=== PATIENT | male | born 1945 | race Caucasian/White ===

== ENCOUNTER 2017-02-03 16:11 | Outpatient (RCR) | payer MEDICARE, OTHER, SELFPAY | END 2017-02-13 | LOC: PULREHAB 16:11 | PROVIDERS: Visit Provider Internal Medicine Adolescent Medicine | DX: J44.9 Chronic obstructive pulmonary disease, unspecified (principal); A31.0 Pulmonary mycobacterial infection | CPT/HCPCS: G0424 ==

== ENCOUNTER → 2017-02-03 | Outpatient (CLI) | payer MEDICARE, OTHER, SELFPAY | PROVIDERS: Visit Provider Thoracic Surgery (Cardiothoracic Vascular Surgery) | DX: I73.9 Peripheral vascular disease, unspecified (principal) | CPT/HCPCS: 36415; 82565; 84520 ==

== ENCOUNTER → 2017-02-05 | Outpatient (CLI) | payer MEDICARE, OTHER, SELFPAY | PROVIDERS: Visit Provider Thoracic Surgery (Cardiothoracic Vascular Surgery) | DX: I70.213 Atherosclerosis of native arteries of extremities with intermittent claudication, bilateral legs (principal) | CPT/HCPCS: 75635; Q9967 ==

== ENCOUNTER → 2017-02-18 14:07 | Outpatient (CLI) | payer MEDICARE, OTHER, SELFPAY ==
--- NOTE | 2017-02-18 14:13 | CT_ITS ---
CT chest wo con HISTORY: Shortness of breath ITS.REASON: SOB ORDERING PHYSICIAN: Edwin Noble PATIENT AGE: 71 years TECHNIQUE: Helical acquisition obtained without contrast. Axial, sagittal, and coronal reformatted images are generated and reviewed. COMPARISON: 09/29/2016 FINDINGS: Scattered atheromatous calcification noted involving the aorta and coronary arteries. Normal heart size. No obvious pericardial effusion. No mediastinal or hilar mass or adenopathy. Centrilobular emphysema with small biapical bulla. Hyperinflation with attenuation of the peripheral pulmonary vessels and bronchial thickening consistent with obstructive chronic bronchitis. There are a few scattered areas of parenchymal fibrosis. Mild atelectatic or fibrotic changes have developed in the right lung base posteriorly and medially. No lobar consolidation or collapse there is a stable 7 x 3 mm nodule within the lingula. Stable 3 mm nodular opacity left lower lobe. Calcified granuloma left lower lobe. No central obstructing lesion evident no evidence of aortic aneurysm. No acute bony anomalies. IMPRESSION: 1. Centrilobular emphysema/COPD with a few scattered fibrotic areas. 2. Stable lingular and left lower lobe nodular opacities 3. No acute finding. 4. Coronary artery disease
== END ==
PROVIDERS: Visit Provider Internal Medicine Critical Care Medicine
DX: R06.02 Shortness of breath (principal)
CPT/HCPCS: 71250

== ENCOUNTER 2017-02-19 14:30 | Outpatient (RCR) | payer MEDICARE, OTHER, SELFPAY | END 2017-02-19 23:59 | LOC: PT 14:30 | PROVIDERS: Visit Provider Internal Medicine Adolescent Medicine | DX: J44.9 Chronic obstructive pulmonary disease, unspecified (principal) ==

== ENCOUNTER 2017-03-17 16:45 | Emergency (ER) | payer MEDICARE, OTHER, SELFPAY ==
[2017-03-17 16:46] VITALS: BP 144/113; PULSE 103; RESP 20; TEMP 37.3; O2SAT 96; BMI 20.9
--- NOTE | 2017-03-17 17:06 | XR_ITS ---
XR hip RT 2-3V w/pelvis HISTORY: Pain following injury ITS.REASON: FALL 4 DAYS AGO ORDERING PHYSICIAN: Med Gamble MD PATIENT AGE: 71 years COMPARISON: None FINDINGS: No fracture or dislocation is evident. No significant degenerative change. No lytic or blastic change. Unremarkable soft tissues IMPRESSION: Negative hip
--- NOTE | 2017-03-17 17:50 | HMH.EDGENADL ---
ED Disposition Clinical Impression: Sacroiliac joint dysfunction of right side Disposition: Home, Self-Care Condition on Discharge: Fair Additional Instructions: Patient requested a copy of his x-ray he will take at his chiropractic friend. Referrals: Lei Corona MD [Primary Care Provider] - - Critical Care Critical Care Time: No Attestation: On 03/17/17, the high probability of a clinically significant, sudden or life threatening deterioration of the following system(s) required my full and direct attention, intervention and personal management. The time I documented below is in addition to time spent performing reported procedures but includes the following listed in this critical care notation. Medical Decision Making - Medical Records Medical records reviewed: Yes: I reviewed the patient's medical records. Vital Signs: 03/17/17 16:46 Temperature 99.1 F Temperature Source Oral Pulse Rate [Left Radial] 103 H Respiratory Rate 20 Blood Pressure [Left Arm] 144/113 Blood Pressure Mean [Left Arm] 123 Blood Pressure Source [Left Arm] Automatic Cuff Blood Pressure Position [Left Arm] Sitting 02 Sat by Pulse Oximetry 96 Oxygen Delivery Method Room Air Orders (Tests/Meds): ORDERS Category Date Time Status Hip XR right minimum 2 views [XR hip RT 2-3V w/pelvis] Exams 03/17/17 17:06 Taken Stat - Radiology Data #1 Image(s): Pelvis, Hip Image Reviewed: Yes I reviewed the patient's radiology image Preliminary Findings: Normal/NAD - Robbin Inquiry Pt receiving controlled substance: No Robbin was queried for this patient: No Medical Decision Making Narrative: I discussed with the patient his physical findings on the radiologic findings. At the present time a recommend symptomatic treatment. If there is no improvement he may consider chiropractic treatment. General Adult HPI - General Chief complaint: PAIN Stated complaint: AO fell 4-5 days ago, right hip pain Mode of Arrival: Ambulatory Limitations: No Limitations Description of Symptoms (Recalled from ER Triage Doc. by RN): PAIN IN R HIP , DUE TO A FALL 4 DAYS AGO . 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 a week ago, He was visiting a friend when the dog when the dog kurt him and he fell landed on his right hip. Has been hurting since then. He had a history of lumbar surgeries and spinal cord stimulator. Onset (ago): day(s) (7 days ago.) Radiation: non-radiation Relieving factors: none Exacerbating factors: movement Associated symptoms: denies other symptoms Treatments prior to arrival: none - Related Data Allergies Allergy/AdvReac Type Severity Reaction Status Date / Time No Known Drug Allergies Allergy Unknown Verified 03/17/17 17:06 [NKDA] [facility] History I have reviewed the patient's past medical history: Yes Medical History: Denies:: Diabetes Mellitus Type 1 - *Social History Educational Level: Completed High School Alcohol Intake: former - Psychiatric History Expresses thoughts of harming self/others: None Suicide Plan Description: No Plan ROS Obtained: Yes All systems reviewed & no additional complaints Physical Exam - General General appearance: alert, in no apparent distress - Head Head exam: atraumatic, normocephalic, normal inspection - Eye Eye exam: Present: normal appearance, PERRL, EOMI - ENT ENT exam: Present: normal exam, normal oropharynx, mucous membranes moist, TM's normal bilaterally, normal external ear exam - Neck Neck exam: Present: normal inspection, full ROM, trachea midline. Absent: meningismus, lymphadenopathy - Chest Chest inspection: Present: normal inspection, symmetric chest wall rise. Absent: tenderness - Respiratory Respiratory exam: Present: normal lung sounds bilaterally. Absent: respiratory distress - Cardiovascular Cardiovascular exam: Present: regular rate
--- NOTE | 2017-03-17 17:56 | ED_ITS ---
ED Disposition Clinical Impression: Sacroiliac joint dysfunction of right side Disposition: Home, Self-Care Condition on Discharge: Fair Additional Instructions: Patient requested a copy of his x-ray he will take at his chiropractic friend. Referrals: Lei Corona MD [Primary Care Provider] - - Critical Care Critical Care Time: No Attestation: On 03/17/17, the high probability of a clinically significant, sudden or life threatening deterioration of the following system(s) required my full and direct attention, intervention and personal management. The time I documented below is in addition to time spent performing reported procedures but includes the following listed in this critical care notation. Medical Decision Making - Medical Records Medical records reviewed: Yes: I reviewed the patient's medical records. Vital Signs: 03/17/17 16:46 Temperature 99.1 F Temperature Source Oral Pulse Rate [Left Radial] 103 H Respiratory Rate 20 Blood Pressure [Left Arm] 144/113 Blood Pressure Mean [Left Arm] 123 Blood Pressure Source [Left Arm] Automatic Cuff Blood Pressure Position [Left Arm] Sitting 02 Sat by Pulse Oximetry 96 Oxygen Delivery Method Room Air Orders (Tests/Meds): ORDERS Category Date Time Status Hip XR right minimum 2 views [XR hip RT 2-3V w/pelvis] Exams 03/17/17 17:06 Taken Stat - Radiology Data #1 Image(s): Pelvis, Hip Image Reviewed: Yes I reviewed the patient's radiology image Preliminary Findings: Normal/NAD - Robbin Inquiry Pt receiving controlled substance: No Robbin was queried for this patient: No Medical Decision Making Narrative: I discussed with the patient his physical findings on the radiologic findings. At the present time a recommend symptomatic treatment. If there is no improvement he may consider chiropractic treatment. General Adult HPI - General Chief complaint: PAIN Stated complaint: AO fell 4-5 days ago, right hip pain Mode of Arrival: Ambulatory Limitations: No Limitations Description of Symptoms (Recalled from ER Triage Doc. by RN): PAIN IN R HIP , DUE TO A FALL 4 DAYS AGO . 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 a week ago, He was visiting a friend when the dog when the dog kurt him and he fell landed on his right hip. Has been hurting since then. He had a history of lumbar surgeries and spinal cord stimulator. Onset (ago): day(s) (7 days ago.) Radiation: non-radiation Relieving factors: none Exacerbating factors: movement Associated symptoms: denies other symptoms Treatments prior to arrival: none - Related Data Allergies Allergy/AdvReac Type Severity Reaction Status Date / Time No Known Drug Allergies Allergy Unknown Verified 03/17/17 17:06 [NKDA] [facility] History I have reviewed the patient's past medical history: Yes Medical History: Denies:: Diabetes Mellitus Type 1 - *Social History Educational Level: Completed High School Alcohol Intake: former - Psychiatric History Expresses thoughts of harming self/others: None Suicide Plan Description: No Plan ROS Obtained: Yes All systems reviewed & no additional complaints Physical Exam - General General appearance: alert, in no apparent distress
== END 2017-03-17 18:05 | disposition home or self-care (01) ==
PROVIDERS: Emergency Provider Emergency Medicine; PCP Internal Medicine Adolescent Medicine
DX: M25.851 Other specified joint disorders, right hip (principal)
CPT/HCPCS: 73502; 99282

== ENCOUNTER → 2017-04-20 15:01 | Outpatient (CLI) | payer MEDICARE, OTHER, SELFPAY ==
--- NOTE | 2017-04-20 15:10 | XR_ITS ---
XR DEXA axial skeleton HISTORY: ITS.REASON: CURRENT STERIOD USE ORDERING PHYSICIAN: Lei Corona MD PATIENT AGE: 71 years COMPARISON: None FINDINGS: The BMD measured at the left femoral neck is 0.764 g/cm squared with a T score of -2.4 . This is considered low in males with high fracture risk. The L1 L4 density has a T score of 1.0 which is normal. IMPRESSION: Low bone density for male with high fracture risk. Recommend treatment and follow-up exam in April 2018
[2017-04-20 17:21] LABS: Alanine Aminotransferase 37 U/L (12-78); Albumin Level 4.2 gm/dL (3.4-5.0); Albumin/Globulin Ratio 1.2 (1.1-1.8); Alkaline Phosphatase 100 U/L (46-116); Anion Gap 10.6 mEq/L (5-15); Aspartate Amino Transferase 23 U/L (15-37); Bilirubin,Total 0.3 mg/dL (0.2-1.0); Blood Urea Nitrogen 12 mg/dL (7-18); Calcium 9.5 mg/dL (8.5-10.1); Carbon Dioxide 34 mmol/L (21.0-32.0); Chloride 102 mmol/L (98-107); Chol/HDL Ratio 3.2 (1-3.5); Cholesterol 250 mg/dL (140-200); Creatinine,Serum 1.02 mg/dL (0.70-1.30); Estimated Glomerular Filt Rate 72 ml/min (>60); GFR (African American) 87 ML/MIN (>60); Globulin 3.4 gm/dl (1.3-3.2); Glucose 113 mg/dL (74-106); HDL Cholesterol 79 mg/dL (27-67); LDL Cholesterol 157 mg/dL (0-130); Potassium 4.6 mmoL/L (3.5-5.1); Sodium 142 mmol/L (136-145); Total Protein,Serum 7.6 gm/dL (6.4-8.2); Triglycerides 71 mg/dL (30-200); VLDL Cholesterol 14 mg/dL (0-40)
== END ==
PROVIDERS: PCP Internal Medicine Adolescent Medicine; Visit Provider Internal Medicine Adolescent Medicine
DX: Z79.52 Long term (current) use of systemic steroids (principal); E78.5 Hyperlipidemia, unspecified; Z13.820 Encounter for screening for osteoporosis
CPT/HCPCS: 36415; 77080; 80053; 80061

== ENCOUNTER 2017-04-25 15:21 | Emergency (ER) | payer MEDICARE, OTHER, SELFPAY ==
[2017-04-25 15:26] VITALS: BP 132/74; PULSE 75; RESP 18; TEMP 36.8; O2SAT 98; BMI 18.6
--- NOTE | 2017-04-25 15:40 | HMH.EDBACK ---
ED Disposition Clinical Impression: Lumbar canal stenosis, PVD (peripheral vascular disease) Disposition: Home, Self-Care Condition on Discharge: Fair Additional Instructions: 1- continue neurivascular check and return for any change as we discussed . 2- use mobic 7.5 mg po bid. 3- continue no smoking 4- follow up with [facility] in [place] and Dr Allen your vascular surgeon. Prescriptions: Meloxicam [Mobic 7.5mg Tab] 7.5 mg PO BID #30 tab Referrals: Lei Corona MD [Primary Care Provider] - - Critical Care Critical Care Time: No Attestation: On 04/25/17, the high probability of a clinically significant, sudden or life threatening deterioration of the following system(s) required my full and direct attention, intervention and personal management. The time I documented below is in addition to time spent performing reported procedures but includes the following listed in this critical care notation. Medical Decision Making - Robbin Inquiry Pt receiving controlled substance: No Robbin was queried for this patient: No Medical Decision Making Narrative: I had a full discussion with the patient in the presence of his nurse, pain is a started a week ago since he tried that stationary bike at his chiropractic friend, is aware that he has a strong bilateral pulses, admitted for having a prior diagnosis of spinal canal stenosis. We discussed the need for rest use of anti-inflammatory and continue pulsation check. Patient is to return for any change in his pulse exam. Back Pain HPI - General Stated Complaint: leg pain - History of Present Illness HPI Narrative: 8 years old white male ex-smoker with history of lumbar canal stenosis and femorofemoral bypass at [facility]. He has been helping his chiropractic friend a week ago when he got on a bike and since then his back has been hurting and radiating to the posterior aspect of both thighs. He is unable to keep his back straight he has to walk bend forward. Percocet used to help and is not helping anymore. Denies cold feet, change of color, or pedal pain, him and his are able to palpate the pulses in both feet. Complaint: back pain Onset (ago): day(s) (1 week.) Duration: constant Similar Symptoms Previously: Yes Location: lumbar spine Severity: moderate Quality: sharp Radiation: none Relieving factors: other (Bending forward makes it easier to walk. ) Exacerbating factors: none, movement (Standing up straight and activity since he used the bike. ) Context: turning/twisting, bending Associated symptoms: denies other symptoms Pertinent Issues R/T Back Pain: Other (Prior vascular surgery.) - Related Data Previous Rx's Medication Instructions Recorded Meloxicam [Mobic 7.5mg Tab] 7.5 mg PO BID #30 tab 04/25/17 Allergies Allergy/AdvReac Type Severity Reaction Status Date / Time No Known Drug Allergies Allergy Unknown Verified 03/17/17 17:06 [NKDA] [facility] History I have reviewed the patient's past medical history: Yes Medical History: Denies:: Diabetes Mellitus Type 1 - Social History Alcohol Intake: former ROS Obtained: Yes All systems reviewed & no additional complaints Physical Exam - General General appearance: alert, in no apparent distress - Head Head exam: atraumatic, normocephalic, normal inspection - Eye Eye exam: Present: normal appearance, PERRL, EOMI - ENT ENT exam: Present: normal exam, normal oropharynx, mucous membranes moist, TM's normal bilaterally, normal external ear exam - Neck Neck exam: Present: normal inspection, full ROM, trachea midline. Absent: meningismus, lymphadenopathy - Chest Chest inspection: Present: normal inspection, symmetric chest wall rise. Absent: tenderness - Respiratory Respiratory exam: Present: normal lung sounds bilaterally. Absent: respiratory distress - Cardiovascular Cardiovascular exam: Present: regular rate, normal rhythm. Absent: JVD - Abdomina
--- NOTE | 2017-04-25 15:43 | ED_ITS ---
ED Disposition Clinical Impression: Lumbar canal stenosis, PVD (peripheral vascular disease) Disposition: Home, Self-Care Condition on Discharge: Fair Additional Instructions: 1- continue neurivascular check and return for any change as we discussed . 2- use mobic 7.5 mg po bid. 3- continue no smoking 4- follow up with [facility] in [place] and Dr Allen your vascular surgeon. Prescriptions: Meloxicam [Mobic 7.5mg Tab] 7.5 mg PO BID #30 tab Referrals: Lei Corona MD [Primary Care Provider] - - Critical Care Critical Care Time: No Attestation: On 04/25/17, the high probability of a clinically significant, sudden or life threatening deterioration of the following system(s) required my full and direct attention, intervention and personal management. The time I documented below is in addition to time spent performing reported procedures but includes the following listed in this critical care notation. Medical Decision Making - Robbin Inquiry Pt receiving controlled substance: No Robbin was queried for this patient: No Medical Decision Making Narrative: I had a full discussion with the patient in the presence of his nurse, pain is a started a week ago since he tried that stationary bike at his chiropractic friend, is aware that he has a strong bilateral pulses, admitted for having a prior diagnosis of spinal canal stenosis. We discussed the need for rest use of anti-inflammatory and continue pulsation check. Patient is to return for any change in his pulse exam. Back Pain HPI - General Stated Complaint: leg pain - History of Present Illness HPI Narrative: 8 years old white male ex-smoker with history of lumbar canal stenosis and femorofemoral bypass at [facility]. He has been helping his chiropractic friend a week ago when he got on a bike and since then his back has been hurting and radiating to the posterior aspect of both thighs. He is unable to keep his back straight he has to walk bend forward. Percocet used to help and is not helping anymore. Denies cold feet, change of color, or pedal pain, him and his are able to palpate the pulses in both feet. Complaint: back pain Onset (ago): day(s) (1 week.) Duration: constant Similar Symptoms Previously: Yes Location: lumbar spine Severity: moderate Quality: sharp Radiation: none Relieving factors: other (Bending forward makes it easier to walk. ) Exacerbating factors: none, movement (Standing up straight and activity since he used the bike. ) Context: turning/twisting, bending Associated symptoms: denies other symptoms Pertinent Issues R/T Back Pain: Other (Prior vascular surgery.) - Related Data Previous Rx's Medication Instructions Recorded Meloxicam [Mobic 7.5mg Tab] 7.5 mg PO BID #30 tab 04/25/17 Allergies Allergy/AdvReac Type Severity Reaction Status Date / Time No Known Drug Allergies Allergy Unknown Verified 03/17/17 17:06 [NKDA] [facility] History I have reviewed the patient's past medical history: Yes Medical History: Denies:: Diabetes Mellitus Type 1 - Social History Alcohol Intake: former ROS Obtained: Yes All systems reviewed & no additional complaints Physical Exam - General General appearance: alert, in no apparent distress - Head Head exam: atraumatic, normocephalic, normal inspection - Eye Eye exam: Present: normal appearance, PERRL, EOMI - ENT ENT exam: Present: normal exam, no
--- NOTE | 2017-04-25 15:44 | PC.NURSE ---
pt with positive pulses ble, dorsal, popliteal,femoral
[2017-04-25 15:59] VITALS: BP 132/75; PULSE 65; RESP 18; TEMP 36.7; O2SAT 99
== END 2017-04-25 15:58 | disposition home or self-care (01) ==
PROVIDERS: Emergency Provider Emergency Medicine; PCP Internal Medicine Adolescent Medicine
DX: M53.3 Sacrococcygeal disorders, not elsewhere classified (principal); M48.061 Spinal stenosis, lumbar region without neurogenic claudication; I73.9 Peripheral vascular disease, unspecified
CPT/HCPCS: 99281

== ENCOUNTER → 2017-05-13 13:05 | Outpatient (CLI) | payer MEDICARE, OTHER, SELFPAY ==
[2017-05-13 14:05] LABS: Blood Urea Nitrogen 22 mg/dL (7-18); Creatinine,Serum 0.99 mg/dL (0.70-1.30); Estimated Glomerular Filt Rate 75 ml/min (>60); GFR (African American) 90 ML/MIN (>60)
--- NOTE | 2017-05-13 15:00 | CT_ITS ---
CT thoracic spine w con INDICATION: ITS.REASON: SPINAL STENOSIS,LOW BACK PAIN,THORACIC PAIN ORDERING PHYSICIAN: Hernesto Mccormick PATIENT AGE: 71 years COMPARISON: Chest CT of 02/18/2017 TECHNIQUE: Axial images are obtained with 75 mL's of Isovue-370 contrast. Sagittal and coronal reformatted images are reviewed as well. All CT scans at the facility use one or more dose reduction, viz: automated exposure control; ma/kV adjustment per patient size (including targeted exams where dose is matched to indication; i.e. head); or iterative reconstruction technique. FINDINGS: There is an epidural catheter present which enters the spinal canal posteriorly at the L1 level. There is good alignment. No fracture or dislocation is evident. No enhancing lesions minimal endplate osteophytes are present. The epidural catheter ends at the T7-T8 level. There is a small Schmorl's node along the superior endplate of T12. No enhancing lesions are evident. No obstructive process. No evidence of spondylodiscitis or very spinal abscess IMPRESSION: Mild thoracic spondylosis. No acute fracture or dislocation. Epidural stimulator device is in place. No enhancing abnormalities. No mass or destructive process. No spinal stenosis in the thoracic or lumbar spine.
--- NOTE | 2017-05-13 15:00 | CT_ITS ---
CT lumbar spine w con INDICATION: Low back pain, ITS.REASON: SPINAL STENOSIS,LOW BACK PAIN,THORACIC PAIN ORDERING PHYSICIAN: Hernesto Mccormick PATIENT AGE: 71 years COMPARISON: CT scan of the chest of 02/18/2017 TECHNIQUE: Axial images are obtained without and with contrast. Sagittal and coronal reformatted images are reviewed as well. All CT scans at the facility use one or more dose reduction, viz: automated exposure control; ma/kV adjustment per patient size (including targeted exams where dose is matched to indication; i.e. head); or iterative reconstruction technique. FINDINGS: There is normal alignment. There is a transitional segment at the lumbosacral junction which will be labeled as S1. Certainly if any intervention is contemplated then this should be taken into consideration. L1-L2: There is mild wedge compression changes involving the central and superior aspect of the L2 vertebral body with loss of height anteriorly of 25% with very minimal retropulsion of the posterior superior aspect of L2 with straightening of the lumbar lordosis.. This compression chains has developed since previous chest CT of 02/18/2017. L2-L3: There is suggestion of a broad-based central and right paracentral disc protrusion with mild facet and ligamentum flavum hypertrophy and mild lateral recess narrowing L3-L4: Unremarkable. L4-5: Mild concentric bulging disc along with facet and ligamentum flavum hypertrophy with narrowing of the canal along with bilateral lateral recess and foraminal narrowing L5-S1: Severe degenerative disc disease with endplate osteophytes and bulging disc facet ligamentum flavum hypertrophy with severe bilateral foraminal narrowing. Gas density is present in the right lateral recess and foraminal area on the right at L5-S1 likely extruded from the local disc. Gas could be present within the disc protrusion/herniation as well which cannot be further evaluated on the CT scan. Subcortical cystic changes are present. There is severe bilateral foraminal narrowing. Right-sided laminectomy defect is present at S1. No enhancing lesions are evident. No evidence of abscess or discitis. There is a 1.5 cm cyst involving the right kidney posteriorly. IMPRESSION: 1. Acute or subacute compression fracture of L2 with minimal retropulsion of the posterior superior aspect. 2. Broad-based central right paracentral disc protrusion at L2-L3 3. Severe degenerative disc disease at L5-S1 with endplate osteophytes and bulging disc facet ligamentum flavum hypertrophy with severe bilateral foraminal narrowing. Gas density is present in the right lateral recess and foraminal area on the right at L5-S1 likely extruded from the local disc. Gas could be present within the disc protrusion/herniation as well which cannot be further evaluated on the CT scan. Subcortical cystic changes are present. There is severe bilateral foraminal narrowing. Right-sided laminectomy defect is present at S1.
== END ==
PROVIDERS: PCP Internal Medicine Adolescent Medicine; Visit Provider Pain Medicine Interventional Pain Medicine
DX: M48.061 Spinal stenosis, lumbar region without neurogenic claudication (principal); M54.6 Pain in thoracic spine
CPT/HCPCS: 36415; 72129; 72132; 82565; 84520; Q9967

== ENCOUNTER → 2017-07-22 14:22 | Outpatient (CLI) | payer MEDICARE, OTHER, SELFPAY ==
[2017-07-22 14:36] LABS: Basophils # 0.1 K/mm3 (0-0.2); Basophils % 0.3 % (0.1-2.0); Eosinophils # 0.2 K/mm3 (0.0-0.4); Eosinophils % 1.3 % (0.1-12.0); Hematocrit 52.1 % (42.0-52.0); Hemoglobin 16.3 g/dL (14.1-18.0); Lymphocytes # 1.6 K/mm3 (0.7-4.5); Lymphocytes % 10.5 K/mm3 (10-50); Mean Corpuscular HGB Conc 31.3 g/dL (31.8-35.4); Mean Corpuscular Hemoglobin 31.2 pg (27.0-31.2); Mean Corpuscular Volume 99.7 fl (80-94); Mean Platelet Volume 9.1 fl (7.4-10.4); Monocytes # 0.3 K/mm3 (0.1-1.0); Monocytes % 2.1 % (1.7-9.3); Neutrophils # 12.9 K/mm3 (1.8-7.8); Neutrophils % 85.8 % (37.0-80.0); Platelet Count 209 K/mm3 (142-424); Red Blood Count 5.22 M/mm3 (4.60-6.20); Red Cell Distribution Width 13.2 % (11.5-17.5)
[2017-07-22 14:39] LABS: MANUAL DIFFERENTIAL MANUAL DIFFERENTIAL (MANUAL DIFF)
[2017-07-22 15:09] LABS: Alanine Aminotransferase 38 U/L (12-78); Albumin Level 4.5 gm/dL (3.4-5.0); Albumin/Globulin Ratio 1.5 (1.1-1.8); Alkaline Phosphatase 85 U/L (46-116); Anion Gap 18.3 mEq/L (5-15); Aspartate Amino Transferase 28 U/L (15-37); Blood Urea Nitrogen 15 mg/dL (7-18); Calcium 10.1 mg/dL (8.5-10.1); Carbon Dioxide 27 mmol/L (21.0-32.0); Chloride 102 mmol/L (98-107); Creatinine,Serum 1.18 mg/dL (0.70-1.30); Estimated Glomerular Filt Rate 61 ml/min (>60); GFR (African American) 74 ML/MIN (>60); Globulin 3.1 gm/dl (1.3-3.2); Glucose 105 mg/dL (74-106); Potassium 5.3 mmoL/L (3.5-5.1); Sodium 142 mmol/L (136-145); Total Protein,Serum 7.6 gm/dL (6.4-8.2)
[2017-07-22 15:25] LABS: Eosinophils % 1 % (0-3); Lymphocytes % 16 % (10-50); Monocytes % 1 % (2-9); Neutrophils % 82 % (42-76); Total Cells Counted 100
[2017-07-22 15:26] LABS: Platelet Estimate Normal; RBC Morphology Normal
== END ==
PROVIDERS: Visit Provider Internal Medicine
DX: R10.9 Unspecified abdominal pain (principal)
CPT/HCPCS: 36415; 80053; 85007; 85025

== ENCOUNTER → 2017-12-16 14:47 | Outpatient (CLI) | payer MEDICARE, OTHER, SELFPAY ==
--- NOTE | 2017-12-16 14:51 | XR_ITS ---
XR knee LT 3V HISTORY: ITS.REASON: LT ANTERIOR KNEE PAIN ORDERING PHYSICIAN: Lei Corona MD PATIENT AGE: 72 years COMPARISON: None FINDINGS: No fracture or dislocation. No lytic or blastic change. Normal mineralization. No significant arthritic changes evident. No other significant findings surgical clips are present along the medial aspect of the distal femur IMPRESSION: Negative Knee
== END ==
PROVIDERS: PCP Internal Medicine Adolescent Medicine; Visit Provider Internal Medicine Adolescent Medicine
DX: M25.562 Pain in left knee (principal)
CPT/HCPCS: 73562

== ENCOUNTER → 2018-01-05 14:20 | Outpatient (CLI) | payer MEDICARE, OTHER, SELFPAY ==
--- NOTE | 2018-01-05 14:24 | XR_ITS ---
XR knee LT 3V HISTORY: ITS.REASON: LT KNEE PAIN ORDERING PHYSICIAN: Sushma Caal MD PATIENT AGE: 72 years COMPARISON: 12/16/2017 FINDINGS: No fracture or dislocation. No lytic or blastic change. Surgical clips are present along the distal femur medially and posteriorly. There is slight decrease in the joint space medially which may be seen with mild osteoarthritis. IMPRESSION: 1. No acute finding. 2. Slight decrease in the joint space medially which may be seen with mild osteoarthritis
== END ==
PROVIDERS: PCP Internal Medicine Adolescent Medicine; Visit Provider Orthopaedic Surgery
DX: M25.562 Pain in left knee (principal)
CPT/HCPCS: 73562

== ENCOUNTER → 2018-01-13 14:41 | Outpatient (CLI) | payer MEDICARE, OTHER, SELFPAY ==
[2018-01-13 15:09] LABS: Basophils # 0.1 K/mm3 (0-0.2); Basophils % 0.5 % (0.1-2.0); Eosinophils # 0.2 K/mm3 (0.0-0.4); Hematocrit 45.5 % (42.0-52.0); Hemoglobin 14.4 g/dL (14.1-18.0); Lymphocytes # 1.7 K/mm3 (0.7-4.5); Lymphocytes % 15.6 % (10-50); Mean Corpuscular HGB Conc 31.7 g/dL (31.8-35.4); Mean Corpuscular Hemoglobin 31.3 pg (27.0-31.2); Mean Corpuscular Volume 98.8 fl (80-94); Mean Platelet Volume 7.9 fl (7.4-10.4); Monocytes # 0.5 K/mm3 (0.1-1.0); Monocytes % 4.8 % (1.7-9.3); Neutrophils # 8.2 K/mm3 (1.8-7.8); Neutrophils % 77.1 % (37.0-80.0); Platelet Count 211 K/mm3 (142-424); Red Blood Count 4.61 M/mm3 (4.60-6.20); Red Cell Distribution Width 14.3 % (11.5-17.5); White Blood Count 10.7 K/mm3 (4.8-10.8)
--- NOTE | 2018-01-13 15:09 | XR_ITS ---
XR chest 2V HISTORY: Former smoker, COPD ITS.REASON: EX SMOKER, PRE OP ORDERING PHYSICIAN: Sushma Caal MD PATIENT AGE: 72 years COMPARISON: 09/29/2016 FINDINGS: There is hyperinflation with attenuation of the peripheral pulmonary vessels consistent with COPD with some mild fibrotic changes in the lung bases. No lobar consolidation or collapse. Unremarkable cardiovascular structures. There is straightening of the thoracic kyphosis and there is an epidural catheter device present. IMPRESSION: COPD, no acute finding.
[2018-01-13 15:17] LABS: Prothrombin Time 9.3 seconds (9.4-11.8)
[2018-01-13 16:42] LABS: Alanine Aminotransferase 36 U/L (12-78); Albumin Level 3.7 gm/dL (3.4-5.0); Albumin/Globulin Ratio 1.2 (1.1-1.8); Alkaline Phosphatase 78 U/L (46-116); Anion Gap 13.5 mEq/L (5-15); Aspartate Amino Transferase 23 U/L (15-37); Bilirubin,Total 0.4 mg/dL (0.2-1.0); Blood Urea Nitrogen 19 mg/dL (7-18); Calcium 9.8 mg/dL (8.5-10.1); Carbon Dioxide 31 mmol/L (21.0-32.0); Chloride 101 mmol/L (98-107); Estimated Glomerular Filt Rate 74 ml/min (>60); GFR (African American) 89 ML/MIN (>60); Globulin 3.2 gm/dl (1.3-3.2); Glucose 123 mg/dL (74-106); Potassium 4.5 mmoL/L (3.5-5.1); Sodium 141 mmol/L (136-145); Total Protein,Serum 6.9 gm/dL (6.4-8.2)
== END ==
PROVIDERS: Visit Provider Orthopaedic Surgery
DX: M25.562 Pain in left knee; Z01.812 Encounter for preprocedural laboratory examination; Z01.810 Encounter for preprocedural cardiovascular examination; Z79.52 Long term (current) use of systemic steroids
CPT/HCPCS: 36415; 71046; 80053; 85025; 85610; 93005

== ENCOUNTER → 2018-01-26 14:52 | Outpatient (CLI) | payer MEDICARE, OTHER, SELFPAY ==
--- NOTE | 2018-01-26 | NVE_ITS ---
Venous Exam Indications: 729.5 Pain in limb. IMPRESSIONS 1. There is no evidence of significant Reflux. 2. No evidence of deep or superficial vein thrombosis involving the right lower extremity and left lower extremity History: Bilateral lower extremity pain. Risk factors: Former tobacco use. Labs, prior tests, procedures, and surgery: Left knee arthroscopy. Labs, prior tests, procedures, and surgery: Left knee arthroscopy. Complete lower extremity venous duplex evaluation. Doppler flow study including spectral analysis, color and valerio scale imaging. Location: Vascular laboratory. Patient status: Outpatient. Tables: Venous flow and imaging: + +-------+ + Location Overall Flow properties + +-------+ + Right common femoral Patent Normal phasicity; spontaneous; normal augmentation; compressible + +-------+ + Right saphenofemoral junction Patent Compressible + +-------+ + Right profunda femoral Patent Compressible + +-------+ + Right femoral Patent Normal phasicity; spontaneous; normal augmentation; compressible; no reflux + +-------+ + Right greater saphenous Patent Normal phasicity; spontaneous; normal augmentation; compressible + +-------+ + Right popliteal Patent Normal phasicity; spontaneous; normal augmentation; compressible + +-------+ + Right posterior tibial Patent Compressible + +-------+ + Right peroneal Patent Compressible + +-------+ + Right gastrocnemius Patent Compressible + +-------+ + Right soleal Patent Compressible + +-------+ + Left common femoral Patent Normal phasicity; spontaneous; normal augmentation; compressible + +-------+ + Left saphenofemoral junction Patent Compressible + +-------+ + Left profunda femoral Patent Compressible + +-------+ + Left femoral Patent Normal phasicity; spontaneous; normal augmentation; compressible +
== END ==
PROVIDERS: PCP Internal Medicine Adolescent Medicine; Visit Provider Orthopaedic Surgery
DX: I73.9 Peripheral vascular disease, unspecified (principal); M79.605 Pain in left leg
CPT/HCPCS: 93970

== ENCOUNTER → 2018-01-29 12:54 | Outpatient (CLI) | payer MEDICARE, OTHER, SELFPAY ==
--- NOTE | 2018-01-29 12:56 | AS_ITS ---
Arterial Exam Indications: PVD 433.9. 782.0 Disturbance of skin sensation. 729.5 Pain in limb. 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 440.21 Atherosclerosis of [place] arteries of the extremities with intermittent claudication. IMPRESSIONS 1. Elevated velocity seen left common femoral arterydistal to graft in left iliac artery. 2. Study suggests less than 60% stenosis involving the right common iliac artery Labs, prior tests, procedures, and surgery: Pt states he has had stenting/grafting bilateral LE's.Pt has a scar proximal medial left thigh. Peripheral stent ( right). ? Peripheral stent ( left). ? Left graft. iliac Left graft. ? Labs, prior tests, procedures, and surgery: Pt states he has had stenting/grafting bilateral LE's.Pt has a scar proximal medial left thigh. Peripheral stent ( right). ? Peripheral stent ( left). ? Left graft. iliac Left graft. ? Bilateral lower extremity arterial duplex. Duplex scan and ankle-brachial indices. Location: Vascular laboratory. Patient status: Outpatient. Tables: Arterial flow: + +--------+ + Location V sys Flow analysis + +--------+ + Right deep femoral - proximal 48.9cm/s Biphasic + +--------+ + Right femoral - proximal 121cm/s Biphasic + +--------+ + Right femoral - mid 80.5cm/s Biphasic + +--------+ + Right femoral - distal 77.9cm/s Biphasic + +--------+ + Right popliteal - proximal 61.5cm/s Biphasic + +--------+ + Right popliteal - distal 67.7cm/s Biphasic + +--------+ + Right posterior tibial - proximal 38.4cm/s Biphasic + +--------+ + Right posterior tibial - mid 41.9cm/s Biphasic + +--------+ + Right posterior tibial - distal 46.8cm/s Biphasic + +--------+ + Right peroneal - proximal 41.9cm/s Biphasic + +--------+ + Right peroneal - mid 47.5cm/s Biphasic + +--------+ + Left deep femoral - proximal 46cm/s Biphasic + +--------+ + Left femoral - proximal 87.6cm/s Biphasic + +--------+ + Left femoral - mid 70.7cm/s Biphasic + +--------+ + Left femoral - distal 75.2cm/s Biphasic + +--------+ + Left popliteal - proximal 49.6cm/s Biphasic + +--------+ + Left popliteal - distal 56.6cm/s Biphasic + +--------+ + Left posterior tibial - proximal 16.8cm/s Monophasic + +--------+ + Left posterior tibial - mid 32.6cm/s Monophasic + +--------+ +
--- NOTE | 2018-01-29 13:01 | US_ITS ---
US Arterial Ankle Brachial Ind History: Bilateral rest pain, bilateral claudication worse on the left ORDERING PHYSICIAN: Sushma Caal MD PATIENT AGE: 72 years TECHNIQUE: Segmental pressures obtained of both right and left leg. These are compared to brachial blood pressure to yield index at each level sampled including summary ALDO. The data sheets from the procedure are available in PACS FINDINGS Rest study only performed today No prior studies available for comparison. Blood pressures reported are in millimeters mercury. RIGHT LEG ALDO = 0.9. RIGHT LEG TBI=0.8 Brachial BP: 154 Thigh BP: 143 Calf BP: 131 Ankle PT: 139 Ankle DP : 138 Digit =119 LEFT LEG ALDO = 0.6 LEFT LEG TBI= 0.5 Brachial BPD: 138 Thigh BP: 114 Calf BP: 74 Ankle PT:99 Ankle DP: 128 Digit = 82 Pulses and waveforms: Diminished pulses and waveforms on the left IMPRESSION: The left ALDO is moderately low at 0.6 suggesting moderate arterial disease. There is a 16 point gradient between the blood pressure of the right brachial and left brachial arteries with the left brachial lower by 16 point which may indicate a stenosis of the left subclavian, axillary, or brachial artery..
== END ==
PROVIDERS: PCP Internal Medicine Adolescent Medicine; Visit Provider Orthopaedic Surgery
DX: I73.9 Peripheral vascular disease, unspecified (principal)
CPT/HCPCS: 93922; 93925

== ENCOUNTER → 2018-02-02 15:09 | Outpatient (CLI) | payer MEDICARE, OTHER, SELFPAY ==
--- NOTE | 2018-02-02 15:11 | XR_ITS ---
XR hip LT 2-3V w/pelvis HISTORY: ITS.REASON: Lt hip pain ORDERING PHYSICIAN: Sushma Caal MD PATIENT AGE: 72 years COMPARISON: None FINDINGS: No fracture or dislocation is evident. No significant degenerative change. No lytic or blastic change. Unremarkable soft tissues. There is generalized vascular calcification IMPRESSION: Negative hip
== END ==
PROVIDERS: PCP Internal Medicine Adolescent Medicine; Visit Provider Orthopaedic Surgery
DX: M25.552 Pain in left hip
CPT/HCPCS: 73502

== ENCOUNTER → 2018-02-05 09:38 | Outpatient (CLI) | payer MEDICARE, OTHER, SELFPAY ==
--- NOTE | 2018-02-05 09:39 | IR_ITS ---
IR fluoro guided needle place CLINICAL INDICATION: Left hip pain ITS.REASON: LT HIP arthritis ORDERING PHYSICIAN: Sushma Caal MD PATIENT AGE: 72 years Comparison: None Fluoroscopy time: 7 seconds FINDINGS: Single image submitted during left hip joint injection by Dr. Caal. The image shows contrast localized along the superior aspect of the femoral neck and at the base of the greater trochanter. No obvious intra-articular contrast is identified. Please correlate with fluoroscopic findings. IMPRESSION: C-arm utilized for hip joint injection. See above for detail
--- NOTE | 2018-02-07 10:46 | HMH.PROC ---
[facility] Procedure Note Procedure Note:: Date of Procedure: 02/05/2018 Pre-procedure diagnosis: LLE pain, mild hip arthrosis on XR Post-procedure diagnosis: same Procedure: intraarticular corticosteroid injection L hip Performed by: Sushma Caal MD Lifeguard/s: none Anesthesia: local; 10cc 1% lidocaine w/o epinephrine Estimated Blood Loss: none History of Present Illness: 72yo M with LLE pain who presented with L knee pain; XR showed minimal arthritic changes in the medial compartment. MRI was unable to be obtained due to the presence of a spinal cord stimulator. The patient elected to have arthroscopy performed on the knee, which revealed grade 3-4 chondral damage on the medial femoral condyle. Chondroplasty was performed and a loose body removed from the knee. Post-operatively he still had pain, which is described as radiating down the entire leg; it is worst over the medial aspect of the knee. He has no improvement before the arthroscopy with steroid injection in the knee; post-operatively a marcaine injection was given in the knee, which decreased his pain to around a 5 (~50% decrease). XR of the hip showed mild DJD. He also has DDD of the lumbar spine with what appears to be a compression fracture in the upper lumbar spine; no recent XR of the back have been done. He has a history of lower extremity arterial bypass grafting, though what vessels were involved and what graft was used are unknown. Vascular studies were recently performed, which showed no DVT or suspicion for occluded arterial graft. The patient will likely ultimately require knee arthroplasty, but prior to this, pain from the hip should be ruled out as a contributing factor. I recommend CSI of the L hip; based on the amount of pain relief he gets from this injection, if any, we may better understand if his pain is primarily from the knee, if the hip is the primary issue, or if the lower back needs to be looked at. I discussed risks, benefits and alternatives to the procedure with the patient, who vocalized understanding and provided informed consent. Procedure Note: The patient presented to the radiology department and changed into a gown, exposing the L hip. Consent was reviewed and signed by both myself and the patient, all questions were answered. The patient was placed supine on the fluoroscopy table and the L hip exposed. The anterior groin/hip and proximal thigh were prepped with chlorhexidine. Timeout was performed. Next, the fluoro machine was brought in over the patient?s L hip and a picture taken to confirm adequate visualization of the joint. I donned a pair of sterile surgical gloves; the remainder of the procedure was performed in a sterile fashion. A 20G spinal needle was held over the L hip to approximate my desired entry point on the skin. Once this was established, a 25G needle was used to infiltrate injection site and estimated needle track with 10cc 1% lidocaine w/o epinephrine. Once the injection site was anesthetized, the spinal needle was advanced through the same puncture site and deeper towards the hip joint. Using fluoro, it was confirmed that the needle was advanced until it was at the level of the femoral neck. The stylus was removed from the spinal needle and 2cc of iodinated contrast solution was injected through the spinal needle. Fluoro was taken again, and the dye confirmed intra-capsular placement of the spinal needle, indicating a successful intraarticular injection. The syringe with contrast was removed, keeping the spinal needle in place, and 40mg Kenalog with 2cc 1% lidocaine w/o epinephrine was injected through the needle into the hip joint. A final fluoro picture was taken, confirming successful intraarticular injection. The spinal needle was removed from the hip and a band-aid was placed over the injection site. Specimens: none Condition/Disposition: good / home Complications: none
--- NOTE | 2018-02-07 10:54 | P.PCN_ITS ---
[facility] Procedure Note Procedure Note:: Date of Procedure: 02/05/2018 Pre-procedure diagnosis: LLE pain, mild hip arthrosis on XR Post-procedure diagnosis: same Procedure: intraarticular corticosteroid injection L hip Performed by: Sushma Caal MD [employer] Cook/s: none Anesthesia: local; 10cc 1% lidocaine w/o epinephrine Estimated Blood Loss: none History of Present Illness: 72yo M with LLE pain who presented with L knee pain; XR showed minimal arthritic changes in the medial compartment. MRI was unable to be obtained due to the presence of a spinal cord stimulator. The patient elected to have arthroscopy performed on the knee, which revealed grade 3-4 chondral damage on the medial femoral condyle. Chondroplasty was performed and a loose body removed from the knee. Post-operatively he still had pain, which is described as radiating down the entire leg; it is worst over the medial aspect of the knee. He has no improvement before the arthroscopy with steroid injection in the knee; post- operatively a marcaine injection was given in the knee, which decreased his pain to around a 5 (~50% decrease). XR of the hip showed mild DJD. He also has DDD of the lumbar spine with what appears to be a compression fracture in the upper lumbar spine; no recent XR of the back have been done. He has a history of lower extremity arterial bypass grafting, though what vessels were involved and what graft was used are unknown. Vascular studies were recently performed, which showed no DVT or suspicion for occluded arterial graft. The patient will likely ultimately require knee arthroplasty, but prior to this, pain from the hip should be ruled out as a contributing factor. I recommend CSI of the L hip; based on the amount of pain relief he gets from this injection, if any, we may better understand if his pain is primarily from the knee, if the hip is the primary issue, or if the lower back needs to be looked at. I discussed risks, be nefits and alternatives to the procedure with the patient, who vocalized understanding and provided informed consent. Procedure Note: The patient presented to the radiology department and changed into a gown, exposing the L hip. Consent was reviewed and signed by both myself and the patient, all questions were answered. The patient was placed supine on the fluoroscopy table and the L hip exposed. The anterior groin/hip and proximal thigh were prepped with chlorhexidine. Timeout was performed. Next, the fluoro machine was brought in over the patient?s L hip and a picture taken to confirm adequate visualization of the joint. I donned a pair of sterile surgical gloves; the remainder of the procedure was performed in a sterile fashion. A 20G spinal needle was held over the L hip to approximate my desired entry point on the skin. Once this was established, a 25G needle was used to infiltrate injection site and estimated needle track with 10cc 1% lidocaine w/o epinephrine. Once the injection site was anesthetized, the spinal needle was advanced through the same puncture site and deeper towards the hip joint. Using fluoro, it was confirmed that the needle was advanced until it was at the level of the femoral neck. The stylus was removed from the spinal needle and 2cc of iodinated contrast solution was injected through the spinal needle. Fluoro was taken again, and the dye confirmed intra-capsular placement of the spinal needle, indicating a successful intraarticular injection. The syringe with contrast was removed, keeping the spinal needle in place, and 40mg Kenalog with 2cc 1% lidocaine w/o epinephrine was injected through the needle into the hip joint. A final fluoro picture was taken, confirming successful intraarticular injection. The spinal ne
== END ==
PROVIDERS: PCP Internal Medicine Adolescent Medicine; Visit Provider Orthopaedic Surgery
DX: M16.12 Unilateral primary osteoarthritis, left hip (principal)
CPT/HCPCS: 20610; 77002; Q9967

== ENCOUNTER → 2018-02-15 10:29 | Outpatient (CLI) | payer MEDICARE, OTHER, SELFPAY ==
--- NOTE | 2018-02-15 10:31 | XR_ITS ---
XR hip LT 2-3V w/pelvis HISTORY: ITS.REASON: Hip pain ORDERING PHYSICIAN: Sushma Caal MD PATIENT AGE: 72 years COMPARISON: Pelvis and left hip 02/02/2018 FINDINGS: No fracture or dislocation is evident. No significant degenerative change. No lytic or blastic change. Unremarkable soft tissues IMPRESSION: Negative hip
--- NOTE | 2018-02-15 10:31 | XR_ITS ---
EXAM: XR lumbar spine 2-3V HISTORY: ITS.REASON: ap lateral STANDING views. ORDERING PHYSICIAN: Sushma Caal MD PATIENT AGE: 72 years COMPARISON: CT scan lumbar spine 05/13/2017 FINDINGS: There is straightening of the normal curvature suggesting some degree of muscle spasm. There is a stable mild impression fracture of L2. There is mild disc space narrowing at L4-5 and L5-S1 levels. There is prominent anterior osteophytic spurring at L5-S1 level. There are prominent hypertrophic facet changes at L 45 and L5-S1 levels. There is a transitional vertebrae at the lumbosacral junction with partial lumbarization of S1 bilaterally. The SI joints per normal. There is an apparent relief device in the subcutaneous tissues of the lower back with a neurostimulator electrode entering the spinal canal at approximately the T12-L1 level. There is prominent atherosclerotic calcification of the abdominal aorta but there is no aneurysm. . IMPRESSION: Possible mild muscle spasm, prominent degenerative disc disease L5-S1 and stable old mild compression fracture L2
--- NOTE | 2018-02-15 10:31 | XR_ITS ---
XR knee LT 4V HISTORY: ITS.REASON: Knee pain ORDERING PHYSICIAN: Sushma Caal MD PATIENT AGE: 72 years COMPARISON: Left knee 01/05/2018 FINDINGS: There is prominent joint space narrowing medially, the lateral joint space appears normal. There is no significant spurring of tibial spines. The patella appears normal and see no definite effusion. There are surgical clips seen just posterior and medial to the distal femur. No fracture or dislocation. No lytic or blastic change. Normal mineralization. . No other significant findings IMPRESSION: Mild to moderate degenerative change medial joint space
--- NOTE | 2018-02-15 10:31 | XR_ITS ---
XR DEXA axial skeleton COMPARISON: DEXA scan 04/20/2017 HISTORY: Fracture as an adult TECHNIQUE: DEXA scanning lumbar spine and bilateral hips FINDINGS: The areas BMD MR spine L1-L4 is 1.318 g/sq cm the T score of 0.8. This is a 2% interval decline in BMD from the previous study 04/20/2017 The total BMD right hip is 0.855 g centimeters square the T score -1.7 in the right femoral neck is 0.795 g centimeters square with T score -2.1. The total BMD left hip is 0.825 g centimeters square with T score of -1.9 and the left femoral neck is 0.804 g/sq cm with a T score -2.0. The left femoral neck value shows interval improvement from previous study. IMPRESSION: T score normal range lumbar spine, osteopenia range for both hips, consider follow-up study in approximately 2 years
== END ==
PROVIDERS: PCP Internal Medicine Adolescent Medicine; Visit Provider Orthopaedic Surgery
DX: M81.0 Age-related osteoporosis without current pathological fracture (principal); M25.562 Pain in left knee; M25.559 Pain in unspecified hip; M54.9 Dorsalgia, unspecified
CPT/HCPCS: 72100; 73502; 73564; 77080

== ENCOUNTER → 2018-02-17 12:28 | Outpatient (CLI) | payer MEDICARE, OTHER, SELFPAY ==
--- NOTE | 2018-02-17 12:34 | CT_ITS ---
CT chest wo con HISTORY: Follow-up pulmonary nodules, shortness of breath, emphysema/COPD ITS.REASON: PULMONARY NODULES ORDERING PHYSICIAN: Alexander Alcon PATIENT AGE: 72 years COMPARISON: 02/18/2017 Technique: Axial images obtained with sagittal and coronal reformats. All CT scans at the facility use one or more dose reduction, viz: automated exposure control, ma/kV adjustment per patient size (including targeted exams where dose is matched to indication, i.e. head), or iterative reconstruction technique. FINDINGS: No mediastinal or hilar mass or adenopathy. Coronary artery calcification noted with normal heart size. Centrilobular emphysema with hyperinflation and attenuation of the peripheral pulmonary vessels consistent with obstructive chronic bronchitis. Scattered areas of scarring once again noted. No change in the 6 mm noncalcified lingular nodule. There are fibrotic changes present within the lingula and right middle lobe.. These findings are slightly worse in the lingula. Previous. No new or suspicious nodules are evident. There is some mild subpleural atelectasis or fibrosis noted along the major fissure on the left laterally chest developed since the previous exam. There is an epidural stimulator device present. There is mild thickening of the esophagus which is nonspecific and could be due to reflux esophagitis Wedge compression changes involve the central and anterior aspect of L1 which is developed since the previous exam. IMPRESSION: 1. Overall no change in the lingular nodule with COPD and centrilobular emphysema. 2. Slight increase in atelectatic or fibrotic changes within the lingula and left lower lobe. 3. New wedge compression changes of L1 which have developed since 02/18/2017. No retropulsion
== END ==
PROVIDERS: PCP Internal Medicine Adolescent Medicine; Visit Provider Internal Medicine Cardiovascular Disease
DX: R91.8 Other nonspecific abnormal finding of lung field (principal)
CPT/HCPCS: 71250

== ENCOUNTER → 2018-03-04 09:17 | Outpatient (CLI) | payer MEDICARE, OTHER, SELFPAY ==
--- NOTE | 2018-03-04 09:29 | XR_ITS ---
XR chest 2V HISTORY: ITS.REASON: PRIOR TOBACCO USE,COPD ORDERING PHYSICIAN: Sushma Caal MD PATIENT AGE: 72 years COMPARISON: 01/13/2018 FINDINGS: Unremarkable cardiovascular structures. There is hyperinflation with attenuation of the peripheral pulmonary vessels consistent with COPD. No lobar consolidation or collapse. Epidural catheter is present in the midthoracic spine region. IMPRESSION: COPD, no change no acute finding
[2018-03-04 10:19] LABS: Microscopic, Urine URINE MICROSCOPIC (MICROSCOPIC)
[2018-03-04 10:56] LABS: Basophils % 0.5 % (0.1-2.0); Eosinophils # 0.2 K/mm3 (0.0-0.4); Eosinophils % 1.9 % (0.1-12.0); Hematocrit 45.1 % (42.0-52.0); Lymphocytes # 1.8 K/mm3 (0.7-4.5); Lymphocytes % 18.9 % (10-50); Mean Corpuscular HGB Conc 30.9 g/dL (31.8-35.4); Mean Corpuscular Hemoglobin 31.3 pg (27.0-31.2); Mean Corpuscular Volume 101.3 fl (80-94); Mean Platelet Volume 7.6 fl (7.4-10.4); Monocytes # 0.6 K/mm3 (0.1-1.0); Monocytes % 6.8 % (1.7-9.3); Neutrophils # 6.6 K/mm3 (1.8-7.8); Platelet Count 219 K/mm3 (142-424); Red Blood Count 4.45 M/mm3 (4.60-6.20); Red Cell Distribution Width 14.6 % (11.5-17.5); White Blood Count 9.2 K/mm3 (4.8-10.8)
[2018-03-04 10:58] LABS: INR 0.88 (0.9-1.1); Prothrombin Time 9.1 seconds (9.4-11.8)
[2018-03-04 11:05] LABS: Appearance,Urine CLEAR (Clear); Bilirubin,Urine Negative (Negative); Blood, Urine Negative (Negative); Color,Urine YELLOW (Yellow); Glucose,Urine (UA) Negative (Negative); Ketones,Urine Negative (Negative); Leukocyte Esterase,Urine Negative (Negative); Nitrate,Urine Negative (Negative); Protein,Urine TRACE (Negative); Urobilinogen,Urine 0.2 EU/dl (0.2)
[2018-03-04 11:30] LABS: Bacteria,Urine Trace /lpf; Squamous Epithelial Cell,Urine Occasional #/hpf (0-5); WBC,Urine Occasional #/hpf (0-3)
[2018-03-04 11:47] LABS: Alanine Aminotransferase 43 U/L (12-78); Albumin Level 3.5 gm/dL (3.4-5.0); Alkaline Phosphatase 85 U/L (46-116); Anion Gap 12.8 mEq/L (5-15); Aspartate Amino Transferase 28 U/L (15-37); Bilirubin,Total 0.3 mg/dL (0.2-1.0); Blood Urea Nitrogen 24 mg/dL (7-18); Calcium 9.3 mg/dL (8.5-10.1); Carbon Dioxide 33 mmol/L (21.0-32.0); Chloride 101 mmol/L (98-107); Creatinine,Serum 1.14 mg/dL (0.70-1.30); Estimated Glomerular Filt Rate 63 ml/min (>60); GFR (African American) 77 ML/MIN (>60); Globulin 3.4 gm/dl (1.3-3.2); Glucose 118 mg/dL (74-106); Potassium 4.8 mmoL/L (3.5-5.1); Sodium 142 mmol/L (136-145); Total Protein,Serum 6.9 gm/dL (6.4-8.2)
== END ==
PROVIDERS: PCP Internal Medicine Adolescent Medicine; Visit Provider Orthopaedic Surgery
DX: Z01.818 Encounter for other preprocedural examination (principal); Z51.81 Encounter for therapeutic drug level monitoring
CPT/HCPCS: 36415; 71046; 80053; 81001; 85025; 85610; 86850; 87081; 93005

== ENCOUNTER 2018-03-16 09:26 | Inpatient (IN) ==
--- NOTE | 2018-03-16 10:51 | Progress Note ---
[facility] Anesthesia Checklist - Patient Identification Patient Identification: Arm Band - Structural Data Admitted From: Home Planned Operative Procedure/s: left total knee arthroplasty Consent for Planned Operative Procedure(s) Verified: Yes Verified Documents: Surgical Consent, History and Physical - NPO Status Verified Time NPO: 00:00 - Additional verifications Anesthesia Reactions: No - Airway Assessment C-Spine Mobility Assessed: Yes TMJ Mobility Assessed: Yes Dentition: Dentures-good fit (pt instructed to remove dentures before going to operating room) - Neurological Assessment Level of Consciousness: Awake, Alert - Anesthesia Plan Anesthesia Risk discussed: Yes Anesthesia Plan: Verified ASA Class: III Anesthesia Type: General (with Adductor Canal block after procedure) [facility] History I have reviewed the patient's past medical history: Yes Medical History: Reports:: Anxiety, Chronic Obstructive Pulmonary Disease (COPD), Hypertension, Peripheral Artery Disease Denies:: Cancer, Diabetes Mellitus Type 1, Diabetes Mellitus Type 2, Internal Pacemaker, MRSA, Seizures Have you ever received a pneumonia vaccine?: No Have you received a flu vaccine this season?: No Other Medical History: Reports: Arthritis, Other. Denies: Blood Transfusion Reaction Laterality Cases: Left: Arthroscopy Knee Other Surgeries: Yes: Other (back sx, neurostimulator, multiple lower extremity vascular surgeries). No: Pacemaker Amputation: No Fractures: No - *Social History Educational Level: Attended College Smoking Status: Former smoker Alcohol Intake: never Occupational Status: retired Household Members: spouse Travel in the last 8 weeks: None - Psychiatric History Expresses thoughts of harming self/others: None Suicide Plan Description: No Plan *Family Hx:: No significant family history
--- NOTE | 2018-03-16 17:49 | Progress Note ---
[facility] Anesthesia Record Part I Intake, IV Amount: 1,000 Estimated blood loss (mL): 50 Urine output (mL): 0 Blood Products used (#): none Blood Pressure: 151/91 SaO2: 91 Pulse Rate: 100 Respiratory Rate: 10 Temperature: 99.5 F Patient is:: Awake, Nasal O2, Stable Stable to PACU at:: 17:45
--- NOTE | 2018-03-16 17:50 | Progress Note ---
[facility] Anesthesia Record Part II Discharge Time: 18:15 Destination: Medical Surgical Department PACU nurse assessment reviewed?: Yes Patient Condition:: Good Anesthesia Complications:: None Swallowing reflex intact?: Yes Cyanosis?: No
--- NOTE | 2018-03-17 00:38 | Operative Note ---
Date of procedure: 03/16/18 Pre-op Diagnosis:: L knee degenerative joint disease Post-op Diagnosis:: L knee degenerative joint disease Procedure performed:: L total knee arthroplasty Surgeon:: Sushma Caal MD Software Test Automation Engineer(s):: Matheus Carias MD ELECTRICAL CHECKOUT MECHANIC:: Naga Oakes Anesthesia: GETA, regional Estimated blood loss (mL): 100 Clinical Note:: 72-year-old male with left knee pain and x-ray evidence of degenerative joint disease. Initially his x-rays did not show severe degenerative changes in December 2017, and I suspected a possible meniscal tear. However, the patient was unable to obtain an MRI due to the presence of a spinal cord stimulator. Steroid injection did not improve his pain, neither did oral anti-inflammatories or analgesics. He is on chronic narcotic therapy through dial painter for his back; this did not help his knee pain either. Arthroscopy of the knee was performed in December 2017 where a loose body was removed from the knee and a limited chondroplasty performed of the medial femoral condyle. Postoperatively we had continued pain and I suspected it may be coming from his hip or back as well. X-rays of the hip did not show severe degenerative changes, and I did perform an intra-articular steroid injection in the hip. This provided 0 pain relief in the knee. I also perform vascular studies to evaluate his lower extremity bypass grafting. He had no evidence of DVT or obvious arterial insufficiency. His last visit with his vascular surgeon noted that his femoral distal bypass graft was occluded but he had sufficient collaterals to perfuse the distal extremity. DEXA scan was performed due to his chronic steroid use and he was found to have osteopenia. After thoroughly investigating all of these areas, I discussed all treatment options with the patient, including treatment of his back, which I believe is contributing to his knee pain, versus continued nonsurgical management of the knee. His knee pain had increased to the point where he is walking with a limp, is getting very little sleep, and is in severe constant daily pain. I believe he would be a good candidate for a unicompartmental knee arthroplasty, but after discussing the risks of subsequent degeneration of the lateral and patellofemoral compartments, the patient elected to proceed with a total knee arthroplasty, which we believe would give him the best chance of a good outcome with a low chance of repeat surgery in the future. I discussed the risks of surgery, including bleeding, infection, fracture, implant failure/loosening, continued pain after surgery, neurovascular damage, persistent limp after surgery, and potential for further surgery in the future. The patient vocalized understa nding and provided informed consent. Prior to surgery he saw both his primary care physician and his advanced solutions architect, who provided surgical clearances. His past medical history is most notable for severe COPD and a prior sputum culture positive for MAC, hypertension, peripheral arterial disease status post lower extremity arterial bypass grafting, chronic back pain with a neural stimulator. The patient is not a current smoker; he quit smoking several years ago. He reports having been on some form of oral steroid, typically prednisone, since the ; his days has been as high as 40 mg daily in the past, but he is currently only taking 7.5 mg. I discussed this with anesthesia, particularly whether or not stress dose steroids were needed around the time of surgery, and we have elected to restart his home dose and not provide any additional postoperative steroids. Operative findings:: implants: [employer] BCS TKA system femur: size 6 tibia: size 5 patella: 32 x 9mm poly: 9mm Operative note:: The patient was identified in preoperative holding and the left knee signed by myself. I reviewed the operative consent with the patient and answered any questions. He was then seen by anesthesia and the decision was made to perform his nerve block postoperatively. The left knee was cleansed with isopropyl alcohol in preop and SCD applied to the nonoperative right lower extremity. He was then transferred to the OR and placed supine on the operative table. 2 g of Ancef and a dose of tranexamic acid was infused intravenously and general anesthesia induced. Once the patient was asleep, a nonsterile tourniquet was applied to the upper left thigh and a small bump placed under his hip. The left lower extremity was then prepped and draped in the usual sterile fashion for left total knee arthroplasty. This included a chlorhexidine prep followed by application of an Ioban layer. Timeout was performed, identifying the correct patient, correct procedure and correct site. The procedure was begun by making a longitudinal incision down the anterior aspect of the left knee, centered over the patella and extending from 3 fingerbreadths superior to the patella down to the tibial tubercle. After the skin was incised, dissection was carried deeper, raising limited flaps medially and laterally. The quadriceps tendon was identified and cleared. A 10 blade was then used to perform a median parapatellar arthrotomy. Using a Bovie, limited medial release was performed, elevating periosteum of the tibial plateau medially and releasing the distal insertion of the superficial MCL. The patella was then everted and the knee flexed. Infrapatellar fat pad was excised and Z retractors placed to provide adequate exposure to the joint. Medial and lateral menisci were excised, along with the ACL and PCL. Care was taken to protect the deep MCL and the popliteus tendon. Next, the intramedullary guide for the distal femoral resection cutting block was placed and the cutting block pinned into place. The intramedullary noé was removed and the distal femoral cut made using the cutting block. The cut was set at 6 degree valgus with a 9 mm resection. This cut was made, removing 9 mm of the distal femur. Cutting block was removed and an AP sizing guide placed on the knee. Using the AP sizing guide, which was sent in 3 degrees external rotation, the knee was measuring as a size 6 femoral component. The sizing guide was used to drill peg holes for the 5 and 1 femoral cutting block. This was removed and the 5 in 1 cutting block placed on the distal femur and pinned into place. Using this cutting guide, a saw was used to make anterior, posterior, both chamfer cuts in the additional anterior flexion cut specific to this particular system. I am using the [facility] [facility] TKA system. After the femoral cuts were all made, the 5 in 1 cutting block was removed and all resected bone fragments removed from the knee. The posterior aspect of the knee was examined to make sure that all bone had been removed and there were no posterior osteophytes. Size 6 femoral trial was then impacted onto the distal femur and this was seen to fit very well with no notching in good medial lateral fit. Next the femoral trial was removed and we moved onto the tibial cuts. PCL retractor was placed and the proximal tibia exposed. There were no peripheral osteophytes to excise. Extra medullary cutting guide was placed on the lower leg and set to remove 3 mm from the deficient medial tibial plateau. The cutting guide was placed in the desired location and pinned in place with threaded pins. The saw was used to make the proximal tibial cut and broad flat osteotome used to remove the ti bial bone resection piece. All implants were removed from the knee and a spacer block placed in the intra-articular gap and the knee tested in both flexion and extension. The knee was found to be tight in both flexion and extension, so the decision was made to take 2 more millimeters off the proximal tibia. Tibial cutting block was placed in its prior location and lowered 2 mm. Saw was used to make the second cut, taking us slightly more of the tibia. This gave us the desired flexion and extension gaps and we were happy with this final configuration of components, so the femoral trial was placed back onto the knee and the notch cut was made. All extra debris removed from the notch and the femoral trial pieces were placed. The tibia was sized and the most appropriate baseplate appeared to be a size 5. This was not pinned in place, but rather a 9 mm PS poly-trial was placed on the tibial baseplate and this was placed into the knee and allowed to flow freely. This help determine the desired rotation of the tibial component, this had a very good look to it, the flap flexion and extension gaps were roughly equal and appropriate, so the poly-trial was removed and the tibial baseplate pinned in place. The tibia was then drilled and keel punched. 9 mm poly-trial was placed into the knee, which was then placed in extension. Next, we turned our attention to the patella. Calipers measured a thickness of 25 mm; patellar cutting guide was set at 16, anticipating a 9 mm thick patellar button. The patellar cutting guide was placed around the patella and saw used to make patellar cut. The knee Appeared to be a size 32 so the patellar drilling guide was positioned and the lug holes drilled in the patella. A 32 patella trial was placed and the knee taken through a full range of motion. The patella appeared to be tracking very well so we decided that this would be our final patellar component. All components were then removed from the knee, which was irrigated thoroughly while cement was mixed on the back table. Once the knee was thoroughly irrigated and dried, final components were cemented into place: Size 6 femur, size 5 tibia, 32 x 9 mm patellar button. Exc ess cement was trimmed from the knee and a small bump placed under the ankle, with pressure on the thigh keeping the leg in a fully extended position while the cement hardened. While the cement was hardening, joint cocktail was used to inject the pericapsular tissues; this consisted of epinephrine, Toradol, morphine and bupivacaine. Once the cement was hardened, the polyethylene trial was removed from the knee; during the prior trial of the knee, we found that a 9 mm poly-gave very good stability of the knee. We could fully extend the knee, with excellent flexion and medial lateral stability at both 0 degrees and 30 degrees. With the trial poly-out of the knee, we dropped the tourniquet and checked the back of the knee for bleeding. There was no active bleeding in the back of the knee, so the wound was copiously irrigated, Bovie cautery used to achieve hemostasis throughout the knee itself. Once the knee was dried, the final polyethylene component was impacted. This was a 9 mm poly-, posterior stabilized. Once the final Jordana was in place, the knee was reduced and final irrigation performed. Next, the knee was closed in a layered fashion, using an 0 Ethibond and 0 Vicryl to close the capsule. After the capsule was closed, subcutaneous tissues closed with 2-0 Vicryl, followed by dipesh of the skin. The knee was cleansed, dried and sterile dressing applied. A Silverlon dressing was applied, which is a silver impregnated waterproof dressing. On top of this dressing, 4 x 4's, 1 ABD and web roll were placed around the knee, wrapping the web roll from the toes to the upper thigh. Next, the leg was wrapped with Eduin wrap from the toes to the upper thigh, and a knee immobilizer placed. Prior to extubating the patient in leaving the room, anesthesia performed by femoral nerve block. This was done without any complications. The patient was then awoken from anesthesia, extubated and transferred to PACU in good condition. He was stable throughout the case with no immediate perioperative complications. Tourniquet time (min): 120 Condition: stable Disposition: PACU Specimens:: none Complications:: none
--- NOTE | 2018-03-17 00:41 | History & Physical Report ---
*Admission Date: 03/16/18 *Chief complaint: s/p L TKA *History of present illness: 72yo M with L knee DJD who failed conservative treatment consisting of oral analgesics, NSAIDs, ice, activity modification, corticosteroid injections, knee arthroscopy (loose body removal and chondroplasty Dec 2017). He chose to undergo TKA, which was performed earlier today without any immediate naeem-operative complications. He is being admitted for continued post-operative care. [facility] History Medical History: Reports:: Anxiety, Chronic Obstructive Pulmonary Disease (COPD), Home Oxygen (only at night ), Hypertension, Lung Disease (colonized with MAC), Peripheral Artery Disease Denies:: Cancer, Diabetes Mellitus Type 1, Diabetes Mellitus Type 2, Internal Pacemaker, MRSA, Seizures Have you ever received a pneumonia vaccine?: Yes Have you received a flu vaccine this season?: No Other Medical History: Reports: Arthritis, Other (osteopenia). Denies: Blood Transfusion Reaction Laterality Cases: Left: Arthroscopy Knee Other Surgeries: Yes: Other (back sx, neurostimulator, multiple lower extremity vascular surgeries). No: Pacemaker Amputation: No Fractures: No - *Social History Educational Level: Completed High School Smoking Status: Former smoker Smoking End Date: 02/17/2008 Alcohol Intake: never Occupational Status: retired Housing: house Household Members: spouse Travel in the last 8 weeks: None - Psychiatric History Expresses thoughts of harming self/others: None Suicide Plan Description: No Plan Pschychiatric History:: Reports:: Anxiety *Family Hx:: No significant family history Review of Systems - Review of Systems Review of systems:: pertinent systems reviewed and negative unless documented below Meds Home Medications Medication Instructions Recorded Confirmed Type Escitalopram Oxalate 10 mg PO DAILY 08/17/17 03/16/18 History Eszopiclone 3 mg PO DAILY 08/17/17 03/16/18 History Meloxicam [Mobic 7.5mg Tab] 7.5 mg PO BID 08/17/17 03/16/18 History Mirtazapine 45 mg PO DAILY 08/17/17 03/16/18 History Ondansetron [Zofran 4mg ODT] 4 mg PO DAILY 08/17/17 03/16/18 History Oxycodone HCl/Acetaminophen 1 tab PO Q6 08/17/17 03/16/18 History [Oxycodone W/Apap 325mg Tablet] Promethazine HCl [Phenergan 25mg 25 mg PO NEEDED PRN 08/17/17 03/16/18 History tab] diazePAM [Valium 10mg tablet] 10 mg PO DAILY 08/17/17 03/16/18 History predniSONE [Deltasone 10mg tablet] 15 mg PO DAILY 08/17/17 03/16/18 History Buspirone HCl [Buspar 10mg tablet] 10 mg PO BID 01/14/18 03/16/18 History Dronabinol [Marinol] 10 mg PO BID 01/14/18 03/16/18 History Gabapentin [Gabapentin 400mg Cap] 400 mg PO DAILY 01/14/18 03/16/18 History Mupirocin Calcium [Bactroban Nasal] 1 applic INTRANASAL BID 03/15/18 03/16/18 History Allergies Allergy/AdvReac Type Severity Reaction Status Date / Time No Known Drug Allergies Allergy Unknown Verified 03/16/18 09:55 [NKDA] Exam Vital signs and Labs for Last 24 Hours: Temp Pulse Resp BP Pulse Ox 98.8 F 92 H 18 125/66 92 L 03/16/18 22:30 03/16/18 22:30 03/16/18 22:30 03/16/18 22:30 03/16/18 22:30 I & O for Last 24 hours: Intake & Output 03/14/18 03/15/18 03/16/18 03/17/18 11:59 11:59 11:59 11:59 Intake Total 1000 / 1000 Balance 1000 / 1000 Weight 195 lb 190 lb - *Routine Extremities Exam Comments: in PACU s/p L TKA: sedated, but arouses easily and answers questions/follows commands LLE s/p FNB, has knee immobilizer in place sensation diminished LLE due to nerve block (intact pre-op) unable to move ankle/toes LLE due to nerve block calf soft, non-tender LLE palpable pedal pulses LLE Assessment and Plan (1) Degenerative joint disease of knee, left Current visit: Yes Status: Acute Category: Medical Code(s): M17.12 - Unilateral primary osteoarthritis, left knee - Assessment and plan all Dx Assessment and Plan for all problems:: 72yo M POD #0 s/p L TKA -- admit to med/surg for continued post-op care -- pain control: percocet + dilaudid -- elevate/ice LLE -- continue knee immobilizer until nerve block worn off and quad control regained -- PT/OT; WBAT LLE -- DVT prophy: lovenox -- finish 23hr surgical prophy antbx -- continue home meds -- will consult Dr. Corona for medical management -- social work/dc planning for dispo planning
[2018-03-17 06:36] LABS: Basophils % 0.1 % (0.1-2.0); Hematocrit 33.2 % (42.0-52.0); Hemoglobin 10.7 g/dL (14.1-18.0); Lymphocytes # 1.7 K/mm3 (0.7-4.5); Lymphocytes % 12.1 % (10-50); Mean Corpuscular HGB Conc 32.3 g/dL (31.8-35.4); Mean Corpuscular Hemoglobin 31.9 pg (27.0-31.2); Mean Corpuscular Volume 98.6 fl (80-94); Mean Platelet Volume 7.8 fl (7.4-10.4); Monocytes # 0.8 K/mm3 (0.1-1.0); Monocytes % 5.9 % (1.7-9.3); Neutrophils # 11.7 K/mm3 (1.8-7.8); Platelet Count 254 K/mm3 (142-424); Red Blood Count 3.37 M/mm3 (4.60-6.20); Red Cell Distribution Width 15.1 % (11.5-17.5); White Blood Count 14.2 K/mm3 (4.8-10.8)
[2018-03-17 06:44] LABS: Anion Gap 13.2 mEq/L (5-15); Calcium 8.6 mg/dL (8.5-10.1); Potassium 4.2 mmoL/L (3.5-5.1)
--- NOTE | 2018-03-17 07:45 | Pharmacy Consult Notes ---
[facility] Pharmacy VTE Monitoring - Patient Demographics Admission date: 03/16/18 Report Date: 03/17/18 Time: 07:45 Allergies/Adverse Reactions: Patient Allergies No Known Drug Allergies [NKDA] Allergy (Unknown, Verified 03/16/18 09:55) Height: 1.78 m Weight: 86.183 kg Patient Problems: Current Active Problems Degenerative joint disease of knee, left (Acute) - VTE Risk Labs: VTE Related Lab Results Hgb 10.7 g/dL (14.1-18.0) L 03/17/18 06:00 Hct 33.2 % (42.0-52.0) L 03/17/18 06:00 Plt Count 254 K/mm3 (142-424) 03/17/18 06:00 BUN 18 mg/dL (7-18) 03/17/18 06:00 Creatinine 1.33 mg/dL (0.70-1.30) H 03/17/18 06:00 Estimated Creat Clear 62 mL/min (50-200) 03/17/18 06:00 VTE Score: 6 VTE Risk Level: Moderate Risk - Prophylaxis VTE Prophylaxis Ordered?: Yes Types of VTE Prophylaxis: IPCS Thigh High, Pharmacological Location of Applied Device: Bilateral Lower Extremeties Pharmacologic Type: Enoxaparin - VTE Diagnosis Confirmed Treatment or plan recommended: Continue Current Treatment
--- NOTE | 2018-03-17 09:07 | Consult Report ---
*Admission Date: 03/16/18 *Chief complaint: Medical management postoperative status *History of present illness: 72-year-old white male with long history of chronic pulmonary fibrosis with questionable history of MAC in the remote past, currently with stage IV COPD/fibrosis and contemplating lung transplant evaluation-who follows with Dr. [facility] [place]. He also suffers from end-stage osteoarthritis of his knees and underwent left knee replacement yesterday which was uncomplicated. I am consulted for ongoing management of his medical problems and following his pulmonary status. Preoperatively, he had been declared to be low risk for this type of surgery by pulmonary specialty group. He did well through the surgery last night and this morning feels good, he is off his oxygen therapy and is saturating well on room air. He is alert. Oriented x3 and has no complaints of shortness of air. He is about to start his physical therapy session this morning. 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 Denies: Blood Transfusion Reaction Laterality Cases: Left: Arthroscopy Knee Other Surgeries: Yes: Other (back sx, neurostimulator, multiple lower extremity vascular surgeries). No: Pacemaker Amputation: No Fractures: No - *Social History Educational Level: Completed High School Smoking Status: Former smoker Smoking End Date: 02/17/2008 Alcohol Intake: never Occupational Status: retired Housing: house Household Members: spouse Travel in the last 8 weeks: None - Psychiatric History Expresses thoughts of harming self/others: None Suicide Plan Description: No Plan Pschychiatric History:: Reports:: Anxiety *Family Hx:: No significant family history Review of Systems - Review of Systems Review of systems:: pertinent systems reviewed and negative unless documented below - Constitutional Reports anorexia, Reports fatigue, Denies body ache(s) - Eyes Denies blind spots, Denies blurry vision - ENT Denies abnormal hearing - *Cardiovascular Reports shortness of breath (At baseline), Reports shortness of breath with activity (Baseline), Denies chest pain, Denies excessive sweating - *Respiratory Reports shortness of breath with activity, Denies change in phlegm color, Denies chest congestion - *Gastrointestinal Denies abdominal pain, Denies belching, Denies coffee ground vomit - *Genitourinary Denies difficulty urinating - *Musculoskeletal Reports abnormal walking, Reports joint pain Meds Home Medications Medication Instructions Recorded Confirmed Type Escitalopram Oxalate 10 mg PO DAILY 08/17/17 03/16/18 History Eszopiclone 3 mg PO DAILY 08/17/17 03/16/18 History Meloxicam [Mobic 7.5mg Tab] 7.5 mg PO BID 08/17/17 03/16/18 History Mirtazapine 45 mg PO DAILY 08/17/17 03/16/18 History Ondansetron [Zofran 4mg ODT] 4 mg PO DAILY 08/17/17 03/16/18 History Oxycodone HCl/Acetaminophen 1 tab PO Q6 08/17/17 03/16/18 History [Oxycodone W/Apap 325mg Tablet] Promethazine HCl [Phenergan 25mg 25 mg PO NEEDED PRN 08/17/17 03/16/18 History tab] diazePAM [Valium 10mg tablet] 10 mg PO DAILY 08/17/17 03/16/18 History predniSONE [Deltasone 10mg tablet] 15 mg PO DAILY 08/17/17 03/16/18 History Buspirone HCl [Buspar 10mg tablet] 10 mg PO BID 01/14/18 03/16/18 History Dronabinol [Marinol] 10 mg PO BID 01/14/18 03/16/18 History Gabapentin [Gabapentin 400mg Cap] 400 mg PO DAILY 01/14/18 03/16/18 History Mupirocin Calcium [Bactroban Nasal] 1 applic INTRANASAL BID 03/15/18 03/16/18 History Allergies Allergy/AdvReac Type Severity Reaction Status Date / Time No Known Drug Allergies Allergy Unknown Verified 03/16/18 09:55 [NKDA] Exam Vital signs and Labs for Last 24 Hours: Temp Pulse Resp BP Pulse Ox 98.6 F 101 H 18 154/60 H 97 03/17/18 07:45 03/17/18 07:45 03/17/18 08:52 03/17/18 07:45 03/17/18 07:45 Laboratory Results - last 24 hr 03/17/18 06:00: WBC 14.2 H, RBC 3.37 L, Hgb 10.7 L, Hct 33.2 L, MCV 98.6 H, MCH 31.9 H, MCHC 32.3, RDW 15.1, Plt Count 254, MPV 7.8, Neut % (Auto) 82.0 H, Lymph % (Auto) 12.1, Rankin % (Auto) 5.9, Eos % (Auto) 0.0 L, Baso % (Auto) 0.1, Neut # (Auto) 11.7 H, Lymph # (Auto) 1.7, Rankin # (Auto) 0.8, Eos # (Auto) 0.0, Baso # (Auto) 0.0 03/17/18 06:00: Sodium 139, Potassium 4.2, Chloride 103, Carbon Dioxide 27, Anion Gap 13.2, BUN 18, Creatinine 1.33 H, Estimated Creat Clear 62, Estimated GFR 53 L, Est GFR ( Amer) 64, Glucose 134 H, Calcium 8.6 I & O for Last 24 hours: Intake & Output 03/14/18 03/15/18 03/16/18 03/17/18 11:59 11:59 11:59 11:59 Intake Total 1360 / 1360 Output Total 650 / 650 Balance 710 / 710 Weight 195 lb 190 lb Narrative: Patient is awake, alert. No cranial nerve abnormalities. He has slight exophthalmos as previously noted in multiple exams. Lungs are surprisingly clear this morning, good air movement. No bibasilar rhonchi or crackles. He is able to pull 1200 mL's on his incentive spirometer. Heart rate regular. Abdomen soft. Right leg in SCUD device, and left leg wrapped in surgical bandage. The bandage is clean/dry/intact. Able to wiggle his toes. Internal Medicine - CN: Reslt - Labs CBC & Chem 7: 03/17/18 06:00 03/17/18 06:00 Labs: Short CBC 03/17/18 Range/Units 06:00 WBC 14.2 H (4.8-10.8) K/mm3 Hgb 10.7 L (14.1-18.0) g/dL Hct 33.2 L (42.0-52.0) % Plt Count 254 (142-424) K/mm3 BMP 03/17/18 06:00 Sodium 139 Potassium 4.2 Chloride 103 Carbon Dioxide 27 BUN 18 Creatinine 1.33 H Glucose 134 H Calcium 8.6 Assessment and Plan (1) Degenerative joint disease of knee, left Current visit: Yes Status: Acute Category: Medical Code(s): M17.12 - Unilateral primary osteoarthritis, left knee (2) Pulmonary fibrosis Current visit: Yes Status: Acute Category: Medical Code(s): J84.10 - Pulmonary fibrosis, unspecified (3) Pulmonary emphysema with fibrosis of lung Current visit: Yes Status: Acute Category: Medical Code(s): J43.9 - Emphysema, unspecified; J84.10 - Pulmonary fibrosis, unspecified - Assessment and plan all Dx Assessment and Plan for all problems:: Overall patient is doing well. We reviewed incentive spirometer. I will hold any escalation in his chronic benzodiazepine use to help with pulmonary clearance issues. Surgery outcome seems to be excellent at this point.
--- NOTE | 2018-03-17 12:27 | Progress Note ---
Subjective Date: 03/17/18 Time: 12:00 Principal diagnosis: s/p L TKA Interval history: The patient is doing really well this morning. He is having pain in the L knee, but reports a different type of pain that that experienced prior to surgery. Pain medication adequately controlling this pain. He has been out of bed with PT this morning, using a walker and wearing knee immobilizer until the nerve block wears off. Taking good PO, urinating independently, O2 sats good on room air this morning, and home meds restarted. PN: Obj Ex Vital signs: Temp Pulse Resp BP Pulse Ox 98.6 F 96 H 16 153/55 H 100 03/17/18 11:35 03/17/18 11:35 03/17/18 12:18 03/17/18 11:35 03/17/18 11:35 Narrative: AAOx3, NAD LLE with knee immobilizer dressings intact LLE, no strikethrough +DF/PF/EHL LLE SILT distally LLE but diminished; block not completely worn off yet LLE calf soft, non-tender palpable pedal pulses LLE, foot warm Progress Note: A&P (1) Degenerative joint disease of knee, left Status: Acute Current Visit: Yes Assessment and Plan for All Diagnoses:: 72yo M POD 1 s/p L TKA -- finish 23hr per-op prophy antibiotics -- if taking good po, maintaining good UOP, can hold IVF -- continue O2 at night; patient wears this at home -- continue home meds; Dr. Corona on board with medical management, appreciate consult -- DVT prophy: lovenox 40mg SQ daily, will transition to ASA after 2 weeks; also continue SCD RLE -- pain control: continue percocet + dilaudid for breakthrough pain -- continue PT/OT; WBAT LLE, may d/c knee immobilizer when block work off and quad function returns -- dispo planning: anticipate swing bed vs SNF
--- NOTE | 2018-03-18 07:31 | Progress Note ---
Internal Medicine - PN: Subj *Date: 03/18/18 *Time: 07:30 Interval history: Patient slept fairly well through the night according to nursing staff. When awakened this morning he complains bitterly of pain in his knee. We discussed that given his long-term opiate therapy that he would have pain that would be somewhat difficult control and he understands this. He did very well with physical therapy yesterday. Exam Vital signs and Labs for Last 24 Hours: Temp Pulse Resp BP Pulse Ox 98.8 F 98 H 18 128/55 L 95 03/18/18 04:00 03/18/18 04:00 03/18/18 04:00 03/18/18 04:00 03/18/18 04:00 I & O for Last 24 hours: Intake & Output 03/15/18 03/16/18 03/17/18 03/18/18 11:59 11:59 11:59 11:59 Intake Total 1360 / 1360 1465 / 1465 Output Total 850 / 850 500 / 500 Balance 510 / 510 965 / 965 Weight 195 lb 190 lb Microbiology Reports for the Last 24 Hours: Microbiology 03/17/18 Unknown Sputum - Expectorated Sputum Gram Stain - Final Narrative: Resting comfortably on oxygen. He has good/symmetric air entry bilaterally with minimal rhonchi. Abdomen is soft. Heart rate is regular. He has no crackles or wheezing. Heart rate regular without murmurs. Abdomen soft and nontender. Cranial nerves intact. No JVD. Assessment and Plan (1) Degenerative joint disease of knee, left Current visit: Yes Status: Acute Category: Medical Code(s): M17.12 - Unilateral primary osteoarthritis, left knee (2) Pulmonary emphysema with fibrosis of lung Current visit: Yes Status: Acute Category: Medical Code(s): J43.9 - Emphysema, unspecified; J84.10 - Pulmonary fibrosis, unspecified Continue oxygen therapy, pulmonary toilet.
[2018-03-18 08:47] LABS: Basophils % 0.3 % (0.1-2.0); Eosinophils # 0.2 K/mm3 (0.0-0.4); Eosinophils % 1.7 % (0.1-12.0); Hematocrit 30.3 % (42.0-52.0); Hemoglobin 9.4 g/dL (14.1-18.0); Lymphocytes # 1.6 K/mm3 (0.7-4.5); Lymphocytes % 15.8 % (10-50); Mean Corpuscular HGB Conc 31.2 g/dL (31.8-35.4); Mean Corpuscular Hemoglobin 31.7 pg (27.0-31.2); Mean Corpuscular Volume 101.8 fl (80-94); Mean Platelet Volume 8.5 fl (7.4-10.4); Monocytes # 0.6 K/mm3 (0.1-1.0); Monocytes % 6.3 % (1.7-9.3); Neutrophils # 7.6 K/mm3 (1.8-7.8); Neutrophils % 75.9 % (37.0-80.0); Platelet Count 205 K/mm3 (142-424); Red Blood Count 2.98 M/mm3 (4.60-6.20); Red Cell Distribution Width 14.7 % (11.5-17.5); White Blood Count 10.1 K/mm3 (4.8-10.8)
[2018-03-18 09:20] LABS: Anion Gap 9.9 mEq/L (5-15); Calcium 7.9 mg/dL (8.5-10.1); Potassium 3.9 mmoL/L (3.5-5.1)
--- NOTE | 2018-03-18 10:02 | Progress Note ---
Subjective Date: 03/18/18 Time: 09:00 Principal diagnosis: s/p L TKA Interval history: The patient continues to do well this morning. He has increased pain on the left knee now that his nerve block has completely worn off. He has been ambulating with PT using a rolling walker. He had one elevated temperature overnight at 100.7 degrees, but no documented fevers. He denies chest pain but has had some occasional shortness of breath. He has been using his incentive spirometer. Sputum culture was taken overnight. Has been on decreasing amounts of oxygen since admission; he started on 3 L on 03/16/18, was on 2.5 L yesterday and is on 2 L via nasal cannula this morning, with oxygen saturation between 92- 100%. Blood pressure has been elevated between 128-158 mmHg systolic. Heart rate is in the 90s this morning. He has been given duonebs as needed. Overall fluid balance is positive by about 1200 cc since admission. PN: Obj Ex Vital signs: Temp Pulse Resp BP Pulse Ox 98.8 F 95 H 17 142/58 H 97 03/18/18 08:00 03/18/18 08:00 03/18/18 08:00 03/18/18 08:00 03/18/18 08:00 - Constitutional no acute distress, average body habitus, cooperative - Routine HEENT Exam Head: Present: normocephalic Eye: Present: EOMI ENT: Present: mucous membranes moist - Routine Respiratory Exam Absent: accessory muscle use, decreased breath sounds, wheezes - Routine Cardiovascular Exam Present: RRR - Routine Abdominal Exam Present: soft. Absent: tenderness - Routine Extremities Exam Present: edema, pulses intact, normal capillary refill, joint swelling. Absent: cyanosis, calf tenderness, Winsome's sign, extremity cold to touch Comments: LLE dressings intact, MALISSA bandages/webril removed Silver-impregnated dressing saturated, removed; incision c/d/i w/o any active drainage Moderate ecchymosis around L knee, more pronounced laterally Moderate soft tissue swelling around L knee +DF/PF/EHL LLE SILT distally LLE in all distributions calf soft, non-tender, negative Homans LLE palpable pedal pulses LLE, foot warm patient appears edematous in all 4 extremities and face no SOB on exam, no audible wheezes/crackles - Routine Skin Exam Present: warm, wounds, ecchymosis. Absent: erythema - Routine Neurological Exam Present: alert, oriented X3, moving all extremities, normal tone. Absent: sensory deficit, motor deficit, altered mental status - Routine Psychiatric Exam Present: normal affect Progress Note: A&P (1) Degenerative joint disease of knee, left Status: Acute Current Visit: Yes (2) Pulmonary emphysema with fibrosis of lung Status: Acute Current Visit: Yes Assessment and Plan for All Diagnoses:: 72yo M POD 2 s/p L TKA -- afebrile, WBC decreased today (14 --> 10), vitals stable, lungs clear; will hold off on antibiotics for now and f/u sputum culture -- HTN; continue home meds, work on pain control -- continue O2 via NC to maintain sats >92, duonebs ordered PRN -- fluid balance +1200cc since admission, patient with peripheral edema. Urinating on his own, taking good PO, but will add 1 dose of Lasix 40mg IV today. -- Cr normalized today; was 1.33 yesterday, 0.9 today -- post-op anemia; should reach deshawn at POD 2-3, will monitor. Hgb 9.4 this morning. -- continue PT/OT; may d/c knee immobilizer as block has worn off and patient was able to do a straight leg raise for me this morning. I watched him walk to the bathroom with a RW without the KI and he did very well. -- emphasized the importance of keeping the leg straight in bed and placed a pillow under his ankle (and removed the bend in the bed), applied polar care device with second ice pack behind knee, and reinforced the importance of frequent icing and elevation of the leg. As his pain improves, he may also apply SARA hose to the LLE to aid with swelling. -- continue pain meds, encourage IS -- dispo planning: swing bed does not seem like a viable option, will likely d/c to SNF, possibly tomorrow Results Labs on day of discharge: Labs from last 24 hours 03/18/18 03/18/18 08:38 08:38 WBC 10.1 D RBC 2.98 L Hgb 9.4 L Hct 30.3 L MCV 101.8 H MCH 31.7 H MCHC 31.2 L RDW 14.7 Plt Count 205 MPV 8.5 Neut % (Auto) 75.9 Lymph % (Auto) 15.8 [place] % (Auto) 6.3 Eos % (Auto) 1.7 Baso % (Auto) 0.3 Neut # (Auto) 7.6 Lymph # (Auto) 1.6 [place] # (Auto) 0.6 Eos # (Auto) 0.2 Baso # (Auto) 0.0 Sodium 141 Potassium 3.9 Chloride 104 Carbon Dioxide 31 Anion Gap 9.9 BUN 14 Creatinine 0.90 D Estimated Creat Clear 83 Estimated GFR 83 Est GFR ( Amer) 101 D Glucose 120 H Calcium 7.9 L Preliminary micro results at discharge 03/17/18 Unknown Sputum Culture - Preliminary Sputum - Expectorated Sputum Results - Labs Result Diagrams: 03/18/18 08:38 03/18/18 08:38 Labs: Abnormal lab results 03/18/18 03/18/18 Range/Units 08:38 08:38 RBC 2.98 L (4.60-6.20) M/mm3 Hgb 9.4 L (14.1-18.0) g/dL Hct 30.3 L (42.0-52.0) % MCV 101.8 H (80-94) fl MCH 31.7 H (27.0-31.2) pg MCHC 31.2 L (31.8-35.4) g/dL Glucose 120 H (74-106) mg/dL Calcium 7.9 L (8.5-10.1) mg/dL H & H 03/17/18 03/18/18 Range/Units 06:00 08:38 Hgb 10.7 L 9.4 L (14.1-18.0) g/dL Hct 33.2 L 30.3 L (42.0-52.0) % All other labs normal.
[2018-03-19 06:59] LABS: Anion Gap 10.6 mEq/L (5-15); Calcium 8.2 mg/dL (8.5-10.1); Potassium 3.6 mmoL/L (3.5-5.1)
[2018-03-19 07:00] LABS: Basophils % 0.3 % (0.1-2.0); Eosinophils # 0.1 K/mm3 (0.0-0.4); Eosinophils % 1.1 % (0.1-12.0); Hematocrit 28.8 % (42.0-52.0); Hemoglobin 8.8 g/dL (14.1-18.0); Lymphocytes # 1.5 K/mm3 (0.7-4.5); Lymphocytes % 16.3 % (10-50); Mean Corpuscular HGB Conc 30.6 g/dL (31.8-35.4); Mean Corpuscular Hemoglobin 31.5 pg (27.0-31.2); Mean Corpuscular Volume 102.7 fl (80-94); Mean Platelet Volume 7.9 fl (7.4-10.4); Monocytes # 0.6 K/mm3 (0.1-1.0); Monocytes % 7.1 % (1.7-9.3); Neutrophils # 6.7 K/mm3 (1.8-7.8); Neutrophils % 75.2 % (37.0-80.0); Platelet Count 203 K/mm3 (142-424); Red Cell Distribution Width 14.6 % (11.5-17.5); White Blood Count 8.9 K/mm3 (4.8-10.8)
--- NOTE | 2018-03-19 08:50 | Discharge Summary ---
General - General Admission date:: 03/16/18 Discharge date: 03/19/18 HPI HPI: 72yo M with L knee DJD who failed conservative treatment consisting of oral analgesics, NSAIDs, ice, activity modification, corticosteroid injections, knee arthroscopy (loose body removal and chondroplasty Dec 2017). He chose to undergo TKA, which was performed earlier today without any immediate naeem-operative complications. He is being admitted for continued post-operative care. Above note per orthopedics. Below documentation per my initial consultation note: 72-year-old white male with long history of chronic pulmonary fibrosis with questionable history of MAC in the remote past, currently with stage IV COPD/fibrosis and contemplating lung transplant evaluation-who follows with Dr. [facility] [place]. He also suffers from end-stage osteoarthritis of his knees and underwent left knee replacement yesterday which was uncomplicated. I am consulted for ongoing management of his medical problems and following his pulmonary status. Preoperatively, he had been declared to be low risk for this type of surgery by pulmonary specialty group. He did well through the surgery last night and this morning feels good, he is off his oxygen therapy and is saturating well on room air. He is alert. Oriented x3 and has no complaints of shortness of air. He is about to start his physical therapy session this morning. Hospital Course Hospital Course: Patient underwent uncomplicated TKR of left knee. Please see orthopedic notes. Patient's lung status was carefully monitored. He did well with incentive spirometry and did have some sputum production, sputum culture is nondiagnostic at the time of this dictation Patient had one day/evening of postoperative fevers but resolved spontaneously. This was felt to be a postoperative process and no evidence of infection was found. Patient did well with physical therapy. He was able to be maintained off intravenous pain medications over the last 18 hours of his stay here. Of note he is on chronic Percocet as well as Marinol for his arthritis/chronic pain/appetite issues as noted. Patient has met PT goals in the hospital. He will however need ongoing PT/OT for safety issues, balance and gait training. [place] [facility] [place] Please note that he will need a CBC/BMP on March 22. Objective Vital signs: Temp Pulse Resp BP Pulse Ox 97.9 F 99 H 17 145/53 H 94 L 03/19/18 04:00 03/19/18 04:00 03/19/18 04:00 03/19/18 04:00 03/19/18 04:00 Narrative: Exam the day of discharge reveals a white male who appears his stated age. Pleasant. Talkative. Oropharynx clear with no thrush. Dentures are in good repair. No oral lesions. No JVD. Lungs have diffuse rhonchi but symmetric air movement. No tracheal deviation. No wheezing. This is his baseline lung exam. Heart rate regular. And is soft. Left knee in dressing. It is clean/dry/intact. Minimal/trace distal edema in the left ankle. He is able to move his toes well. Good distal pulses. Leg is warm. Right leg is normal with normal pulse and no edema. Abdomen soft and nontender. Neurologic exam is intact including cranial nerve and peripheral strength. Results Labs on day of discharge: Labs from last 24 hours 03/19/18 03/19/18 03/18/18 05:44 05:44 08:38 WBC 8.9 RBC 2.80 L Hgb 8.8 L Hct 28.8 L MCV 102.7 H MCH 31.5 H MCHC 30.6 L RDW 14.6 Plt Count 203 MPV 7.9 Neut % (Auto) 75.2 Lymph % (Auto) 16.3 [place] % (Auto) 7.1 Eos % (Auto) 1.1 Baso % (Auto) 0.3 Neut # (Auto) 6.7 Lymph # (Auto) 1.5 [place] # (Auto) 0.6 Eos # (Auto) 0.1 Baso # (Auto) 0.0 Sodium 144 141 Potassium 3.6 3.9 Chloride 105 104 Carbon Dioxide 32 31 Anion Gap 10.6 9.9 BUN 15 14 Creatinine 1.04 0.90 D Estimated Creat Clear 79 83 Estimated GFR 70 83 Est GFR ( Amer) 85 101 D Glucose 151 H D 120 H Calcium 8.2 L 7.9 L 03/18/18 08:38 WBC 10.1 D RBC 2.98 L Hgb 9.4 L Hct 30.3 L MCV 101.8 H MCH 31.7 H MCHC 31.2 L RDW 14.7 Plt Count 205 MPV 8.5 Neut % (Auto) 75.9 Lymph % (Auto) 15.8 [place] % (Auto) 6.3 Eos % (Auto) 1.7 Baso % (Auto) 0.3 Neut # (Auto) 7.6 Lymph # (Auto) 1.6 [place] # (Auto) 0.6 Eos # (Auto) 0.2 Baso # (Auto) 0.0 Sodium Potassium Chloride Carbon Dioxide Anion Gap BUN Creatinine Estimated Creat Clear Estimated GFR Est GFR ( Amer) Glucose Calcium Preliminary micro results at discharge 03/17/18 Unknown Sputum Culture - Preliminary Sputum - Expectorated Sputum DS: Diagnosis - Discharge Diagnosis (1) Degenerative joint disease of knee, left Status: Acute (2) Pulmonary emphysema with fibrosis of lung Status: Chronic (3) Chronic, continuous use of opioids Status: Acute (4) Chronic malnutrition Status: Chronic (5) Chronic insomnia Status: Chronic (6) Generalized anxiety disorder Status: Chronic Discharge Plan - Patient Discharge Instructions ACTIVITY: Up with assistance DIET: continue same diet Patient Instructions: DI for Knee Replacement, DI for Surgical Site Infection, How to Use a Knee Immobilizer - Follow up Plan Follow up with: Lisa Ascencio APRN [Nurse Practitioner] - 03/23/18 Sushma Caal MD [Staff Physician] - 1 week Disposition: Xfer Home Medications: Home Medications Medication Instructions Recorded Confirmed Type Escitalopram Oxalate 10 mg PO DAILY 08/17/17 03/16/18 History Meloxicam [Mobic 7.5mg Tab] 7.5 mg PO BID 08/17/17 03/16/18 History Promethazine HCl [Phenergan 25mg 25 mg PO Q6HP PRN 08/17/17 03/17/18 History tab] Mupirocin Calcium [Bactroban Nasal] 1 applic INTRANASAL BID 03/15/18 03/16/18 History Buspirone HCl 15 mg PO BID 03/17/18 03/17/18 History Mirtazapine 45 mg PO HS 03/17/18 03/17/18 History Oxycodone HCl/Acetaminophen 1 each PO TIDP PRN 03/17/18 03/17/18 History [Percocet 10-325 mg Tablet] Dronabinol [Marinol] 10 mg PO BID #60 cap 03/19/18 Rx Eszopiclone 3 mg PO HS #30 tab 03/19/18 Rx Gabapentin [Gabapentin 400mg Cap] 400 mg PO DAILY 30 Days cap 03/19/18 Rx Oxycodone HCl/Acetaminophen 1 each PO Q6HP PRN #90 tab 03/19/18 Rx [Oxycodone W/Apap 325mg Tablet] diazePAM [Valium 10mg tablet] 10 mg PO HS 30 Days tab 03/19/18 Rx Prescriptions/Medication Reconciliation: New Ipratropium/Albuterol Sulfate [Duoneb 3mL neb] 3 ml IH Q6HP PRN ampul.neb PRN Reason: Shortness Of Breath Mirtazapine [Remeron 15mg tablet] 45 mg PO HS tablet predniSONE [Deltasone 10mg tablet] 15 mg PO DAILY tablet Sennosides [Senokot 8.6mg tablet] 8.6 mg PO BIDP PRN tablet PRN Reason: Constipation Oxycodone HCl/Acetaminophen [Oxycodone W/Apap 325mg Tablet] 1 each PO Q6HP PRN #90 tab PRN Reason: Breakthru Severe Pain Continue Escitalopram Oxalate 10 mg PO DAILY Mirtazapine 45 mg PO HS diazePAM [Valium 10mg tablet] 10 mg PO HS 30 Days tab Dronabinol [Marinol] 10 mg PO BID #60 cap Eszopiclone 3 mg PO HS #30 tab Gabapentin [Gabapentin 400mg Cap] 400 mg PO DAILY 30 Days cap Buspirone HCl 15 mg PO BID Discontinued Meloxicam [Mobic 7.5mg Tab] 7.5 mg PO BID Mupirocin Calcium [Bactroban Nasal] 1 applic INTRANASAL BID Promethazine HCl [Phenergan 25mg tab] 25 mg PO Q6HP PRN PRN Reason: Nausea Oxycodone HCl/Acetaminophen [Percocet 10-325 mg Tablet] 1 each PO TIDP PRN PRN Reason: PAIN
--- NOTE | 2018-03-19 12:33 | Progress Note ---
Subjective Date: 03/19/18 Time: 09:00 Principal diagnosis: s/p L TKA Interval history: The patient is doing well this morning, pain is persistent but tolerable. Walking with RW and participating with PT/OT. No fevers or chills; tolerating PO intact, vitals stable, labs WNL. Hgb 8.8 this morning. PN: Obj Ex Vital signs: Temp Pulse Resp BP Pulse Ox 98.4 F 89 20 103/56 L 94 L 03/19/18 08:00 03/19/18 08:00 03/19/18 08:00 03/19/18 08:00 03/19/18 08:00 - Routine Extremities Exam Comments: AAOx3, NAD LLE dressing intact, mild serosanguinous drainage; dressings removed and incision c/d/i w/o active drainage L knee ecchymosis stable, no change from yesterday mild periwound tenderness L knee L calf soft, non-tender, negative homans +DF/PF/EHL LLE SILT distally LLE patient able to perform SLR unassisted LLE palpable pedal pulses LLE, L foot warm/well-perfused Progress Note: A&P (1) Degenerative joint disease of knee, left Status: Acute Current Visit: Yes (2) Chronic, continuous use of opioids Status: Acute Current Visit: Yes (3) Postoperative anemia due to acute blood loss Status: Acute Current Visit: Yes Assessment and Plan for All Diagnoses:: 72yo M POD 3 s/p L TKA -- medically stable and appropriate for d/c to SNF today -- d/c instructions given, Rx for pain medication written -- will stop lovenox to prevent ongoing drainage from the knee; will place patient on aspirin instead, 1 pill (325mg) daily -- encouraged patient to perform foot pumps and ambulate frequently to prevent DVT -- will see patient back in clinic at 2 week post-op zaria for XR and staple removal
== END 2018-03-19 14:21 | DRG 470 ==
LOC: 2ND 09:26 → OR 09:26 → OBSVTOIN 10:11 → 2ND 18:22
PROVIDERS: ADMIT Orthopaedic Surgery; ATTEND Orthopaedic Surgery
CPT/HCPCS: 36415; 73560; 80048; 85025; 87070; 87205; 94640; 94761; 96374; 97110; 97116; 97162; 97530; C1713; C1765; C1776; J2405

== ENCOUNTER → 2018-04-02 12:56 | Outpatient (CLI) | payer MEDICARE, OTHER, SELFPAY ==
--- NOTE | 2018-04-02 13:00 | XR_ITS ---
XR knee LT 2V HISTORY: Follow-up knee replacement ITS.REASON: 2 week status post LT TKA ORDERING PHYSICIAN: Sushma Caal MD PATIENT AGE: 72 years COMPARISON: 03/16/2018 FINDINGS: Status post total knee arthroplasty with good alignment. Skin clips are present anteriorly. There is a small amount of intra-articular gas present along the inferior pole of the patella. IMPRESSION: Good alignment status post total knee arthroplasty with some minimal postsurgical gas within the joint
--- NOTE | 2018-04-02 13:06 | XR_ITS ---
XR chest 2V HISTORY: Cough, previous smoker ITS.REASON: PULMONARY FIBROSIS ORDERING PHYSICIAN: Sushma Caal MD PATIENT AGE: 72 years COMPARISON: 03/04/2018 FINDINGS: Unremarkable cardiovascular structures. There is hyperinflation with hyperlucency of the lungs consistent with COPD. There is some patchy density present in the left lung base consistent with atelectasis or infiltrate which was not present on the previous exam. Fibrotic changes are present in the right lung base. No acute bony findings. IMPRESSION: COPD with slight increase in atelectasis or infiltrate in the left lung base
== END ==
PROVIDERS: PCP Internal Medicine Adolescent Medicine; Visit Provider Orthopaedic Surgery
DX: J84.10 Pulmonary fibrosis, unspecified (principal); Z48.89 Encounter for other specified surgical aftercare
CPT/HCPCS: 71046; 73560

== ENCOUNTER → 2018-05-26 12:50 | Outpatient (CLI) | payer MEDICARE, OTHER, SELFPAY ==
--- NOTE | 2018-05-26 12:55 | XR_ITS ---
XR knee LT 2V HISTORY: Follow-up total knee replacement ITS.REASON: LT TOTAL KNEE SX ORDERING PHYSICIAN: Sushma Caal MD PATIENT AGE: 72 years COMPARISON: 04/02/2018 FINDINGS: Status post total knee arthroplasty with good alignment and no evidence of orthopedic complications. There is some soft tissue swelling in suprapatellar region. Skin clips have been removed. IMPRESSION: Good alignment status post total knee replacement
== END ==
PROVIDERS: PCP Internal Medicine Adolescent Medicine; Visit Provider Orthopaedic Surgery
DX: Z96.652 Presence of left artificial knee joint (principal)
CPT/HCPCS: 73560

== ENCOUNTER 2018-06-08 15:08 | Outpatient (RCR) | payer MEDICARE, OTHER, SELFPAY ==
--- NOTE | 2018-06-08 15:55 | HMH.PTOPEV ---
PT Outpatient Evaluation Rehab PT Outpatient Evaluation Start: 06/08/18 15:46 Freq: Status: Active Protocol: Document 06/08/18 15:46 BETY (Rec: 06/08/18 15:54 BETY [id number]) Electronically Signed By Patrick Staples, PT 06/08/18 15:46 Outpatient Therapy Subjective History Subjective History Pt reports successful L TKA on 03/16/18, w/appropriate progress following sx. w/ROM and strength. Pt reports having to jump off 4ft scaffolding ~3 weeks, and 'it felt like I broke something' in the L knee'. Pt reports some instability and pain in L knee since injury, but reports s/s have improved over the last ~1-2 weeks. Chief Complaint Pain,Swelling,Gives out/ Unstable,Weakness Symptom Type Ache,Dull Symptoms Relieved By Rest/Positioning,Ice Symptoms Aggravated By Standing,Physical Activity, Walking Prior Functional Limitations Squatting,Walking,Stairs Current Functional Limitations Housework,Squatting,Walking, Stairs Symptom Description Intermittent Level of pain today (0-10) 5 Pain scale - at its best (0-10) 0 Pain scale - at its worst (0-10) 5 Hip/Knee Eval Gait Observation General Gait Pattern Observation Antalgic Gait Assistive Device Assistive Devices None / NA Palpation Tenderness left Knee Palpation Finding Tenderness Knee Palpation Overall Comment 2-3/4 medial jt line, popiteal space MMT right Hip Flexion Strength Grade 5 Normal Hip Abduction Strength Grade 4 Good Hip Adduction Strength Grade 4 Good Hip Extension Strength Grade 4 Good Knee Extension Strength Grade 5 Normal Knee Flexion Strength Grade 5 Normal left Hip Flexion Strength Grade 4- Good- Hip Abduction Strength Grade 4- Good- Hip Adduction Strength Grade 4- Good- Hip Extension Strength Grade 4- Good- Knee Extension Strength Grade 4 Good Knee Flexion Strength Grade 4 Good ROM right Knee Flexion Active Range of Motion ( 0-135 degrees) left Knee Flexion Active Range of Motion ( 5-130 degrees) Effusion joint effusion knee exam standard left Mid - Patellar Circumerential Measure ( 43.5 cm) Outpatient Therapy Assessment Impairments Problems/Impairmments Palpation Tenderness,Impaired
== END 2018-06-08 15:10 | disposition home or self-care (01) ==
LOC: PT 15:08
PROVIDERS: Visit Provider Orthopaedic Surgery
DX: M25.562 Pain in left knee (principal); Z96.652 Presence of left artificial knee joint
CPT/HCPCS: 97163

== ENCOUNTER → 2018-12-15 16:30 | Outpatient (CLI) | payer MEDICARE, OTHER, SELFPAY ==
--- NOTE | 2018-12-15 | XR_ITS ---
PROCEDURE: XR CHEST 2V CLINICAL HISTORY: Cough and fever COMPARISON: CHESTWO CT chest wo con from 02/17/2018 CXR2V XR chest 2V from 03/04/2018 CXR2V XR chest 2V from 04/02/2018 Chest from 07/06/2018 FINDINGS: The cardiomediastinal silhouette and pulmonary vascularity are within normal limits. Hyperinflation with attenuation of the peripheral pulmonary vessels consistent with COPD with chronic changes in the lung bases. No lobar consolidation or collapse. There is an epidural stimulator device in the midthoracic region No acute bony abnormalities. IMPRESSION: No change with no acute finding. COPD with chronic change Dictated by: David Herrera MD 12/15/2018 17:14 Electronically signed by David Herrera MD in [place] 12/15/2018 17:14
[2018-12-15 17:27] LABS: Basophils % 0.5 % (0.1-2.0); Eosinophils # 0.2 K/mm3 (0.0-0.4); Eosinophils % 2.6 % (0.1-12.0); Hematocrit 45.6 % (42.0-52.0); Hemoglobin 14.8 g/dL (14.1-18.0); Lymphocytes # 1.3 K/mm3 (0.7-4.5); Lymphocytes % 15.9 % (10-50); Mean Corpuscular HGB Conc 32.6 g/dL (31.8-35.4); Mean Corpuscular Hemoglobin 31.1 pg (27.0-31.2); Mean Corpuscular Volume 95.4 fl (80-94); Mean Platelet Volume 9.6 fl (7.4-10.4); Monocytes # 0.6 K/mm3 (0.1-1.0); Neutrophils # 6.2 K/mm3 (1.8-7.8); Neutrophils % 73.9 % (37.0-80.0); Platelet Count 198 K/mm3 (142-424); Red Blood Count 4.78 M/mm3 (4.60-6.20); White Blood Count 8.3 K/mm3 (4.8-10.8)
[2018-12-15 18:54] LABS: Alanine Aminotransferase 19 U/L (12-78); Albumin Level 3.8 gm/dL (3.4-5.0); Albumin/Globulin Ratio 1.1 (1.1-1.8); Alkaline Phosphatase 110 U/L (46-116); Anion Gap 11.8 mEq/L (5-15); Aspartate Amino Transferase 17 U/L (15-37); Bilirubin,Total 0.6 mg/dL (0.2-1.0); Blood Urea Nitrogen 17 mg/dL (7-18); Calcium 9.3 mg/dL (8.5-10.1); Carbon Dioxide 30 mmol/L (21.0-32.0); Chloride 105 mmol/L (98-107); Creatinine,Serum 1.03 mg/dL (0.70-1.30); Estimated Glomerular Filt Rate 71 ml/min (>60); Free Thyroxine Index 3.3 ug/dL (5.93-13.13); GFR (African American) 86 ML/MIN (>60); Globulin 3.4 gm/dl (1.3-3.2); Glucose 107 mg/dL (74-106); Potassium 4.8 mmoL/L (3.5-5.1); Sodium 142 mmol/L (136-145); T4 (Thyroxine) 8.8 ug/dl (4.7-13.3); Thyroid Stimulating Hormone 0.79 uIU/ml (0.358-3.740); Total Protein,Serum 7.2 gm/dL (6.4-8.2); Triiodothryronine (T3) Uptake 38 % (31-39)
[2018-12-17 08:18] LABS: Vitamin B12 480 pg/mL (232-1245); Vitamin D 25 Hydroxy 19.8 ng/mL (30.0-100.0)
== END ==
PROVIDERS: Visit Provider Internal Medicine Adolescent Medicine
DX: R50.9 Fever, unspecified (principal); R25.2 Cramp and spasm; E55.9 Vitamin D deficiency, unspecified
CPT/HCPCS: 36415; 71046; 80053; 82607; 82652; 83735; 84436; 84443; 84479; 85025

== ENCOUNTER → 2019-01-05 16:00 | Outpatient (CLI) | payer MEDICARE, OTHER, SELFPAY ==
[2019-01-05 16:34] LABS: Basophils # 0.1 K/mm3 (0-0.2); Basophils % 0.5 % (0.1-2.0); Eosinophils # 0.2 K/mm3 (0.0-0.4); Eosinophils % 2.5 % (0.1-12.0); Hemoglobin 13.8 g/dL (14.1-18.0); Lymphocytes # 1.9 K/mm3 (0.7-4.5); Lymphocytes % 19.8 % (10-50); Mean Corpuscular HGB Conc 32.1 g/dL (31.8-35.4); Mean Corpuscular Hemoglobin 30.6 pg (27.0-31.2); Mean Corpuscular Volume 95.2 fl (80-94); Mean Platelet Volume 8.4 fl (7.4-10.4); Monocytes # 0.6 K/mm3 (0.1-1.0); Monocytes % 5.9 % (1.7-9.3); Neutrophils % 71.3 % (37.0-80.0); Platelet Count 288 K/mm3 (142-424); Red Blood Count 4.52 M/mm3 (4.60-6.20); White Blood Count 9.8 K/mm3 (4.8-10.8)
[2019-01-05 19:26] LABS: Alanine Aminotransferase 17 U/L (12-78); Albumin Level 3.4 gm/dL (3.4-5.0); Albumin/Globulin Ratio 0.9 (1.1-1.8); Alkaline Phosphatase 95 U/L (46-116); Aspartate Amino Transferase 20 U/L (15-37); Bilirubin,Total 0.5 mg/dL (0.2-1.0); Blood Urea Nitrogen 15 mg/dL (7-18); Calcium 9.3 mg/dL (8.5-10.1); Carbon Dioxide 29 mmol/L (21.0-32.0); Chloride 105 mmol/L (98-107); Creatinine,Serum 1.14 mg/dL (0.70-1.30); Estimated Glomerular Filt Rate 63 ml/min (>60); GFR (African American) 76 ML/MIN (>60); Globulin 3.6 gm/dl (1.3-3.2); Glucose 102 mg/dL (74-106); Sodium 142 mmol/L (136-145)
[2019-01-07 17:20] LABS: Deamidated Gliadin Abs, IgA 4 units (0-19); Deamidated Gliadin Abs, IgG 4 units (0-19)
== END ==
PROVIDERS: Visit Provider Internal Medicine Adolescent Medicine
DX: R10.84 Generalized abdominal pain (principal); R63.4 Abnormal weight loss; F51.04 Psychophysiologic insomnia
CPT/HCPCS: 36415; 80053; 83516; 85025

== ENCOUNTER 2019-03-07 14:59 | Outpatient (RCR) | payer MEDICARE, OTHER, SELFPAY | END 2019-05-18 10:17 | disposition home or self-care (01) | LOC: PT 14:59 | PROVIDERS: Visit Provider Internal Medicine Critical Care Medicine | DX: J43.9 Emphysema, unspecified (principal) | CPT/HCPCS: G0424 ==

== ENCOUNTER → 2019-07-05 14:13 | Outpatient (CLI) | payer MEDICARE, OTHER, SELFPAY ==
--- NOTE | 2019-07-05 14:19 | CT_ITS ---
PROCEDURE: CT CHEST WO CON CLINICAL INDICATION: BACTERIAL DISEASES COPD, increased shortness of air, cough COMPARISON: CHESTWO CT chest wo con from 02/17/2018 CT ABDOMEN PELVIS W CON from 01/15/2019 TECHNIQUE: Axial images obtained with sagittal and coronal reformats. All CT scans at the facility use one or more dose reduction, viz: automated exposure control, ma/kV adjustment per patient size (including targeted exams where dose is matched to indication, i.e. head), or iterative reconstruction technique. FINDINGS: HEART AND MEDIASTINAL STRUCTURES: No mediastinal or hilar mass or adenopathy. Coronary artery calcification. LUNGS AND PLEURAL SPACES: Centrilobular emphysema with COPD and biapical bullous change. There is some mild bronchial thickening. There is some faint ground-glass opacity in the left upper lobe laterally and left lower lobe medially. There are some bullous changes in the lung bases as well. BONY STRUCTURES: There is an epidural stimulator device present in the lower thoracic region. Old mild compression changes involve L1 UPPER ABDOMEN: Unremarkable. ADDITIONAL FINDINGS: No other significant abnormalities. IMPRESSION: 1. Centrilobular emphysema with COPD and bullous changes. 2. Faint ground-glass opacity left upper lobe laterally and left lower lobe medially the which may be due to patchy pneumonia Dictated by: David Herrera MD 07/05/2019 17:17 Electronically signed by David Herrera MD in [place] 07/05/2019 17:17
== END ==
PROVIDERS: PCP Internal Medicine Adolescent Medicine; Visit Provider Nurse Practitioner Acute Care
DX: Z22.39 Carrier of other specified bacterial diseases (principal)
CPT/HCPCS: 71250

== ENCOUNTER → 2019-07-25 13:09 | Outpatient (CLI) | payer MEDICARE, OTHER, SELFPAY ==
--- NOTE | 2019-07-25 | CA_ITS ---
APPROVED REPORT EXAM: Comprehensive 2D, Doppler, and color-flow Echocardiogram Senior Tax Accountant: Anne Garrett CRT Ht: 6 ft 0 in Wt: 170lbs BSA: 1.99 BP: 183/94 mmHg Indications: COPD, HTN, SOB, PHTN, HOME O2 2D Dimensions LVOT 1.99 cm (M/F) 1.5-2.5 M-Mode Dimensions RVDd 2.43 cm (0.9-2.6) LVDd 3.64 cm (3.5-5.7) LVDs 2.46 cm (3.5-5.7) IVSd 1.86 cm (0.6-1.1) PWd 0.93 cm (0.6-1.1) EF (Teich) 61.70% FS 32.40% EDV (Teich) 55.90 mL ESV (Teich) 21.40 mL LV Diastology E/A Ratio 0.71 Mitral Valve MV A Velocity 95.00 (40-130 cm/s) Left Ventricle Left atrium is mildly enlarged, left ventricle is normal size, mild concentric left ventricular hypertrophy, visually estimated ejection fraction 55% with no regional wall motion abnormality, grade 1 diastolic dysfunction seen without tissue Doppler evidence of raise left atrial pressure. Right Ventricle Right atrium and right ventricle are mildly enlarged with normal contractility. Aortic Valve Aortic valve is minimally thickened and fibrosed, there is no aortic stenosis or aortic insufficiency. Mitral Valve Mitral valve is grossly normal, there is mild mitral regurgitation. Tricuspid Valve Tricuspid valve is grossly normal, there is mild tricuspid regurgitation, tricuspid irritation jet velocity is inadequate for calculation of the right ventricular systolic pressure. Pulmonic Valve Pulmonic valve is poorly visualized. Great Vessels Aortic root is normal size. Pericardium No significant pericardial effusion noted. Conclusion 1. Mild biatrial enlargement, normal left ventricular size, visually estimated ejection fraction 55% with no regional wall motion abnormality, grade 1 diastolic dysfunction seen without tissue Doppler evidence of raise left atrial pressure. 2. Mildly enlarged right ventricle with normal contractility. 3. Mild mitral and tricuspid regurgitation. 4. No significant pericardial effusion noted. Electronically signed by : Sohail Grant, 07/25/2019 20:20:40
== END ==
PROVIDERS: PCP Internal Medicine Adolescent Medicine; Visit Provider Nurse Practitioner Family
DX: I27.29 Other secondary pulmonary hypertension (principal); J44.9 Chronic obstructive pulmonary disease, unspecified; G47.34 Idiopathic sleep related nonobstructive alveolar hypoventilation
CPT/HCPCS: 93306

== ENCOUNTER 2019-08-03 23:12 | Emergency (ER) | payer MEDICARE, OTHER, SELFPAY ==
[2019-08-03 23:22] VITALS: BP 205/100; PULSE 113; RESP 26; TEMP 37.2; O2SAT 92; BMI 23.7
[2019-08-03 23:44] LABS: ABG Base Excess 6.5 mmol/L (-2.4-2.3); ABG HCO3 30.3 mmhg (22.0-26.0); ABG Oxygen Saturation 93 % (90-100); ABG PCO2 43.3 mmhg (35.0-45.0); ABG PH 7.46 mmol/L (7.35-7.45); ABG TCO2 31.6 mmhg (23-27)
[2019-08-03 23:45] LABS: Basophils % 0.2 % (0.1-2.0); Eosinophils % 0.2 % (0.1-12.0); Hematocrit 41.5 % (42.0-52.0); Hemoglobin 13.7 g/dL (14.1-18.0); Lymphocytes # 1.1 K/mm3 (0.7-4.5); Lymphocytes % 12.1 % (10-50); Mean Corpuscular Hemoglobin 32.1 pg (27.0-31.2); Mean Corpuscular Volume 97.1 fl (80-94); Mean Platelet Volume 8.3 fl (7.4-10.4); Monocytes # 0.2 K/mm3 (0.1-1.0); Monocytes % 2.6 % (1.7-9.3); Neutrophils # 7.7 K/mm3 (1.8-7.8); Platelet Count 238 K/mm3 (142-424); Red Blood Count 4.28 M/mm3 (4.60-6.20); Red Cell Distribution Width 15.1 % (11.5-17.5)
[2019-08-03 23:46] LABS: Allen's Test Acceptable; Oxygen room air %; Source Left Radial
--- NOTE | 2019-08-03 23:54 | HMH.EDSOB ---
ED Disposition Clinical Impression: Acute exacerbation of chronic obstructive airways disease CAP (community acquired pneumonia) Qualifiers: Laterality: right Lung location: lower lobe of lung Qualified Code(s): J18.9 - Pneumonia, unspecified organism Disposition: Home, Self-Care Condition on Discharge: Good - Critical Care Critical Care Time: No Attestation: On 08/03/19, the high probability of a clinically significant, sudden or life threatening deterioration of the following system(s) required my full and direct attention, intervention and personal management. The time I documented below is in addition to time spent performing reported procedures but includes the following listed in this critical care notation. Medical Decision Making - Medical Records Medical records reviewed: Yes: I reviewed the patient's medical records. - Robbin Inquiry Pt receiving controlled substance: No Vital Signs: 08/03/19 23:22 08/03/19 23:55 08/04/19 00:13 Temperature 99.0 F Temperature Source Oral Pulse Rate 92 H Pulse Rate [Right] 113 H 93 H Respiratory Rate 26 H 20 Blood Pressure [Right Arm] 205/100 H 174/91 H Blood Pressure Mean [Right Arm] 135 118 Blood Pressure Source [Right Arm] Blood Pressure Position [Right Arm] Sitting 02 Sat by Pulse Oximetry 92 L 90 L Oxygen Delivery Method Room Air Room Air 08/04/19 00:34 Temperature Temperature Source Pulse Rate Pulse Rate [Right] 89 Respiratory Rate Blood Pressure [Right Arm] 157/65 H Blood Pressure Mean [Right Arm] 95 Blood Pressure Source [Right Arm] Automatic Cuff Blood Pressure Position [Right Arm] 02 Sat by Pulse Oximetry 90 L Oxygen Delivery Method Room Air - Lab Data Lab results reviewed: Yes: I reviewed the patient's lab results. Lab Results 08/03/19 23:29: Specimen Source Left radial, O2 % room air, ABG pH 7.46 H, ABG pCO2 43.3, ABG pO2 65.0 L, ABG HCO3 30.3 H, ABG Total CO2 31.6 H, ABG O2 Saturation 93, ABG Base Excess 6.5 H, David Test Acceptable 08/03/19 23:30: WBC 9.0, RBC 4.28 L, Hgb 13.7 L, Hct 41.5 L, MCV 97.1 H, MCH 32.1 H, MCHC 33.0, RDW 15.1, Plt Count 238, MPV 8.3, Neut % (Auto) 85.0 H, Lymph % (Auto) 12.1, [place] % (Auto) 2.6, Eos % (Auto) 0.2, Baso % (Auto) 0.2, Neut # (Auto) 7.7, Lymph # (Auto) 1.1, [place] # (Auto) 0.2, Eos # (Auto) 0.0, Baso # (Auto) 0.0, Total Counted 100, Neutrophils % (Manual) 88 H, Lymphocytes % (Manual) 12, Platelet Estimate Normal, Stomatocytes 1+, ESR 50 H 08/03/19 23:30: Sodium 139, Potassium 5.1, Chloride 95 L, Carbon Dioxide 37 H, Anion Gap 12.1, BUN 27 H, Creatinine 1.10, Estimated Creat Clear 65, Estimated GFR 66, Est GFR ( Amer) 79, Glucose 133 H, Calcium 10.4 H, Total Bilirubin 0.2, AST 42, ALT 32, Alkaline Phosphatase 84, Troponin I < 0.01, C-Reactive Protein 30.9 H, Total Protein 7.8, Albumin 4.6, Globulin 3.2, Albumin/Globulin Ratio 1.4 08/03/19 23:30: Lactate 1.2 Result diagrams: 08/03/19 23:30 08/03/19 23:30 Orders (Tests/Meds): ED MEDICATIONS Generic Name Dose Route Start Last Admin Trade Name Freq PRN Reason Stop Dose Admin Sodium Chloride 1,000 mls @ 999 mls/hr 08/03/19 23:30 08/03/19 23:39 Sod Chlor 0.9% 1000ml Bag IV 08/04/19 00:30 999 mls/hr .Q1H1M EDWARD Administration Azithromycin 500 mg/ Sodium 250 mls @ 250 mls/hr 08/04/19 01:00 Chloride IV 08/18/19 00:59 Q24H EDWARD Protocol Ceftriaxone Sodium 1 gm/ 50 mls @ 100 mls/hr 08/04/19 01:00 08/04/19 00:51 Sodium Chloride IV 08/18/19 00:59 100 mls/hr Q24H EDWARD Administration Protocol Sodium Chloride 3 ml 08/04/19 01:02 Sodium Chloride 3% 15ml Neb IH 09/03/19 01:01 ONCE PRN INDUCE SPUTUM COLLECTION Discontinued Medications Generic Name Dose Route Start Last Admin Trade Name Freq PRN Reason Stop Dose Admin Albuterol/Ipratropium 3 ml 08/03/19 23:56 08/04/19 00:01 Duoneb 3ml Neb IH 08/03/19 23:57 3 ml ONCE ONE Administration Methylprednisolone Sodium Bianchi
[2019-08-03 23:55] VITALS: PULSE 91; PULSE 92
[2019-08-03 23:58] LABS: MANUAL DIFFERENTIAL MANUAL DIFFERENTIAL (MANUAL DIFF)
[2019-08-03 23:59] LABS: Alanine Aminotransferase 32 U/L (12-78); Albumin Level 4.6 g/dl (3.5-5.0); Albumin/Globulin Ratio 1.4 (1.1-1.8); Alkaline Phosphatase 84 U/L (38-126); Anion Gap 12.1 mEq/L (5-15); Aspartate Amino Transferase 42 U/L (17-59); Bilirubin,Total 0.2 mg/dl (0.2-1.3); Blood Urea Nitrogen 27 mg/dl (9-20); Calcium 10.4 mg/dl (8.4-10.2); Carbon Dioxide 37 mmol/L (22.0-30.0); Chloride 95 mmol/L (98-107); Creatinine Clearance Estimated 65 mL/min (50-200); Estimated Glomerular Filt Rate 66 ml/min (>60); GFR (African American) 79 ML/MIN (>60); Globulin 3.2 g/dL (1.3-3.2); Glucose 133 mg/dl (74-100); Potassium 5.1 mmoL/L (3.5-5.1); Sodium 139 mmol/L (136-145); Total Protein,Serum 7.8 g/dl (6.3-8.2)
[2019-08-04] LABS: Lactic Acid 1.2 mmol/L (0.7-2.1)
[2019-08-04 00:04] LABS: C-Reactive Protein 30.9 mg/L (0-4)
--- NOTE | 2019-08-04 00:05 | XR_ITS ---
PROCEDURE: XR CHEST 2V CLINICAL HISTORY: soa COMPARISON: XR CHEST 2V from 12/15/2018 XR CHEST 2V from 01/14/2019 XR CHEST PORTABLE from 05/12/2019 CT CHEST WO CON from 07/05/2019 FINDINGS: Moderate emphysematous changes are noted with hyperexpansion of the lung hobbs and flattening and depression of the hemidiaphragms. There is minimal bilateral basilar discoid atelectasis. The lung hobbs are clear of infiltrate. The cardiomediastinal silhouette and vascularity are normal except for mild peripheral attenuation of the pulmonary vasculature. The epidural neuro stimulator electrode is again seen mid thoracic spinal canal IMPRESSION: Moderate COPD, minimal bilateral basilar atelectasis Dictated by: Dr. Alfonso Smith MD 08/04/2019 07:[address] Alfonso Smith MD in [place] 08/04/2019 07:54
[2019-08-04 00:13] VITALS: BP 174/91; PULSE 93; RESP 20; O2SAT 90
[2019-08-04 00:14] LABS: Troponin I < 0.01 ng/ml (0.00-0.034)
[2019-08-04 00:27] LABS: Lymphocytes % 12 % (10-50); Neutrophils % 88 % (42-76); Platelet Estimate Normal; Stomatocytes 1+; Total Cells Counted 100
[2019-08-04 00:29] LABS: Erythrocyte Sedimentation Rate 50 mm/hr (0-20)
[2019-08-04 00:34] VITALS: BP 157/65; PULSE 89; O2SAT 90
--- NOTE | 2019-08-04 00:50 | ECG_ITS ---
APPROVED REPORT Exam: Resting ECG HR:87 bpm ECG Measurements Heart Rate 87 AXES TN 148 P 56 QRSd 76 QRS 72 QT 354 T 64 QTc 425 <Conclusion> Normal sinus rhythm Normal ECG Electronically signed by : Lei Corona, 08/05/2019 17:42:18
[2019-08-04 01:00] VITALS: BP 146/81; PULSE 86; RESP 16; O2SAT 91
--- NOTE | 2019-08-04 01:13 | PC.NURSE ---
this nurse went in pt room to hang antibiotic. pt asked how long it would be until he got to go up to his room on the second floor. this nurse informed the pt that it would be atleast over an hour and a half because we will have to wait for the COVID test results to come back. pt stated he wasnt interested in staying for the results and that he wanted to get the antibiotics then go home.
[2019-08-04 01:40] VITALS: BP 151/91; PULSE 77; RESP 17; TEMP 36.8; O2SAT 91
[2019-08-05 17:50] LABS: Covid-19 Nasal PCR Sendout Lex Not Detected
== END 2019-08-04 01:45 | disposition left against medical advice (07) ==
LOC: ER 08-04 01:02 → 2ND 08-04 01:20
PROVIDERS: Emergency Provider Emergency Medicine; PCP Internal Medicine Adolescent Medicine
DX: J44.1 Chronic obstructive pulmonary disease with (acute) exacerbation (principal); J18.9 Pneumonia, unspecified organism; Z99.81 Dependence on supplemental oxygen; I10 Essential (primary) hypertension; I73.9 Peripheral vascular disease, unspecified; Z87.891 Personal history of nicotine dependence
CPT/HCPCS: 71046; 80053; 82803; 83605; 84484; 85007; 85025; 85651; 86140; 87040; 93005; 96365; 96367; 96375; 99284; J0456; U0004

== ENCOUNTER 2019-08-07 15:56 | Observation (INO) | payer MEDICARE, OTHER, SELFPAY ==
[2019-08-07] VITALS (10 sets, daily range): BP systolic 142–161; BP diastolic 70–98; PULSE 71–114; RESP 18–26; TEMP 36.7–37.8; O2SAT 88–98; BMI 23.7; BMI 25.4
--- NOTE | 2019-08-07 15:58 | ECG_ITS ---
APPROVED REPORT Exam: Resting ECG HR:117 bpm ECG Measurements Heart Rate 117 AXES HI 140 P 80 QRSd 76 QRS 70 QT 308 T 74 QTc 429 <Conclusion> Sinus tachycardia Pulmonary disease pattern Abnormal ECG Electronically signed by : Lei Corona, 08/09/2019 14:07:59
--- NOTE | 2019-08-07 15:58 | XR_ITS ---
PROCEDURE: XR CHEST PORTABLE CLINICAL HISTORY: CP SOB Nonsmoker COMPARISON: XR CHEST 2V from 01/14/2019 XR CHEST PORTABLE from 05/12/2019 CT CHEST WO CON from 07/05/2019 XR CHEST 2V from 08/04/2019 FINDINGS: [id number] emphysematous changes seen with hyperexpansion of the lung hobbs and depression of the hemidiaphragms. There is minimal atelectasis at both lung bases. I see no definite acute infiltrate. Cardiac size is normal with vascularity is grossly normal except for some peripheral attenuation consistent with emphysema. IMPRESSION: Mild to moderate COPD with minimal bilateral basilar atelectasis Dictated by: Dr. Alfonso Smith MD 08/07/2019 19:[address] Alfonso Smith MD in [place] 08/07/2019 19:04
--- NOTE | 2019-08-07 16:17 | PC.NURSE ---
RT at bedside
--- NOTE | 2019-08-07 16:18 | PC.NURSE ---
RT at BS
[2019-08-07 16:30] LABS: Basophils % 0.1 % (0.1-2.0); Eosinophils % 0.3 % (0.1-12.0); Lymphocytes # 1.3 K/mm3 (0.7-4.5); Lymphocytes % 12.6 % (10-50); Mean Corpuscular HGB Conc 33.4 g/dL (31.8-35.4); Mean Corpuscular Hemoglobin 31.9 pg (27.0-31.2); Mean Corpuscular Volume 95.5 fl (80-94); Mean Platelet Volume 7.8 fl (7.4-10.4); Monocytes # 0.4 K/mm3 (0.1-1.0); Monocytes % 3.5 % (1.7-9.3); Neutrophils # 8.5 K/mm3 (1.8-7.8); Neutrophils % 83.5 % (37.0-80.0); Platelet Count 229 K/mm3 (142-424); Red Cell Distribution Width 15.3 % (11.5-17.5); White Blood Count 10.2 K/mm3 (4.8-10.8)
[2019-08-07 16:32] LABS: Chloride 99 mmol/L (98-107); Potassium 4.7 mmoL/L (3.5-5.1); Sodium 139 mmol/L (136-145)
[2019-08-07 16:35] LABS: Blood Urea Nitrogen 31 mg/dl (9-20); Creatinine Clearance Estimated 68 mL/min (50-200); Estimated Glomerular Filt Rate 73 ml/min (>60); GFR (African American) 89 ML/MIN (>60); Lactic Acid 1.4 mmol/L (0.7-2.1)
[2019-08-07 16:36] LABS: Anion Gap 8.7 mEq/L (5-15); Calcium 9.4 mg/dl (8.4-10.2); Carbon Dioxide 36 mmol/L (22.0-30.0); Glucose 130 mg/dl (74-100)
--- NOTE | 2019-08-07 16:41 | PC.NURSE ---
Dr Chloe hannon.
--- NOTE | 2019-08-07 16:43 | PC.NURSE ---
Dr Hirsch returned call
--- NOTE | 2019-08-07 16:46 | HMH.EDSOB ---
ED Disposition Clinical Impression: Atypical chest pain, COPD with exacerbation Disposition: Admitted as Observation Condition on Discharge: Good Referrals: Lei Corona MD [Primary Care Provider] - - Critical Care Critical Care Time: No Attestation: On 08/07/19, the high probability of a clinically significant, sudden or life threatening deterioration of the following system(s) required my full and direct attention, intervention and personal management. The time I documented below is in addition to time spent performing reported procedures but includes the following listed in this critical care notation. Medical Decision Making - Medical Records Medical records reviewed: Yes: I reviewed the patient's medical records. - Robbin Inquiry Pt receiving controlled substance: No Vital Signs: 08/07/19 15:57 08/07/19 16:13 08/07/19 16:32 Temperature 100.1 F H Temperature Source Oral Pulse Rate [Right Radial] 114 H 107 H 104 H Respiratory Rate 26 H Blood Pressure [Right Arm] 160/89 H 160/89 H 158/93 H Blood Pressure Mean [Right Arm] 112 112 114 Blood Pressure Source [Right Arm] Automatic Cuff Automatic Cuff Automatic Cuff Blood Pressure Position [Right Arm] Sitting Sitting Sitting 02 Sat by Pulse Oximetry 94 L 94 L 94 L Oxygen Delivery Method Nasal Cannula Room Air Room Air Oxygen Flow Rate (LPM) 2 08/07/19 16:41 Temperature 99.7 F H Temperature Source Oral Pulse Rate [Right Radial] Respiratory Rate Blood Pressure [Right Arm] Blood Pressure Mean [Right Arm] Blood Pressure Source [Right Arm] Blood Pressure Position [Right Arm] 02 Sat by Pulse Oximetry 94 L Oxygen Delivery Method Nasal Cannula Oxygen Flow Rate (LPM) 2 - Lab Data Lab results reviewed: Yes: I reviewed the patient's lab results. Lab Results 08/07/19 16:07: WBC 10.2, RBC 4.40 L, Hgb 14.0 L, Hct 42.0, MCV 95.5 H, MCH 31.9 H, MCHC 33.4, RDW 15.3, Plt Count 229, MPV 7.8, Neut % (Auto) 83.5 H, Lymph % (Auto) 12.6, [place] % (Auto) 3.5, Eos % (Auto) 0.3, Baso % (Auto) 0.1, Neut # (Auto) 8.5 H, Lymph # (Auto) 1.3, [place] # (Auto) 0.4, Eos # (Auto) 0.0, Baso # (Auto) 0.0 08/07/19 16:07: Sodium 139, Potassium 4.7, Chloride 99, Carbon Dioxide 36 H, Anion Gap 8.7, BUN 31 H, Creatinine 1.00, Estimated Creat Clear 68, Estimated GFR 73, Est GFR ( Amer) 89, Glucose 130 H, Calcium 9.4 08/07/19 16:07: Lactate 1.4 Result diagrams: 08/07/19 16:07 08/07/19 16:07 Orders (Tests/Meds): ED MEDICATIONS Discontinued Medications Generic Name Dose Route Start Last Admin Trade Name Freq PRN Reason Stop Dose Admin Albuterol Sulfate 2.5 mg 08/07/19 16:17 08/07/19 16:29 Albuterol 0.083% 2.5mg/3ml [facility] 08/07/19 16:18 2.5 mg ONCE ONE Administration Albuterol/Ipratropium 3 ml 08/07/19 16:10 Duoneb 3ml [facility] 08/07/19 16:11 ONCE ONE Methylprednisolone Sodium Succinate 125 mg 08/07/19 16:10 08/07/19 16:16 Solu-Medrol 125mg/2ml Vial IV 08/07/19 16:11 125 mg ONCE ONE Administration ORDERS Category Date Time Status Chest XR -- portable [XR chest portable] Stat Exams 08/07/19 15:58 Taken Basic Metabolic Panel Stat Lab 08/07/19 16:07 Results Troponin I Q3H Lab 08/07/19 19:00 Ordered Troponin I Q3H Lab 08/07/19 22:00 Ordered Troponin I Stat Lab 08/07/19 16:07 Results Blood Culture Stat Micro 08/07/19 16:07 Received - Radiology Data #1 Image(s): Chest Preliminary Findings: Normal/NAD Medical Decision Narrative: Spoke to Dr. Hirsch for admission for this patient for COPD exacerbation. Resp/SOB HPI - General Chief Complaint: Shortness of Breath/Dyspnea Stated Complaint: Chest pain Time Seen by Provider: 08/07/19 16:46 Mode of Arrival: Wheelchair Source of Information: Patient Limitations: No Limitations Description of Symptoms (Recalled from ER Triage Doc. by RN): Pt reports SOA, states he was here in the ER a couple of night ago and refused to be admitted. Pt reports has
--- NOTE | 2019-08-07 16:48 | PC.NURSE ---
Pt to be admitted but admission delayed due to covid testing.
[2019-08-07 16:51] LABS: Troponin I < 0.01 ng/ml (0.00-0.034)
[2019-08-07 17:30] LABS: Adenovirus,PCR Not Detected (NotDetected); Bordetella Pertussis Not Detected (NotDetected); Chlamydophila Pneumoniae, PCR Not Detected (NotDetected); Coronavirus 19, PCR Not Detected (NotDetected); Coronavirus 229E Not Detected (NotDetected); Coronavirus NL63 Not Detected (NotDetected); Coronavirus OC43 Not Detected (NotDetected); Coronovirus HKU1,PCR Not Detected (NotDetected); Human Metapneumovirus Not Detected (NotDetected); Influenza A, PCR Not Detected (NotDetected); Influenza AH1, 2009 Not Detected (NotDetected); Influenza AH1, PCR Not Detected (NotDetected); Influenza AH3,PCR Not Detected (NotDetected); Influenza B, PCR Not Detected (NotDetected); Mycoplasma Pneumoniae, PCR Not Detected (NotDected); Parainfluenza 1, PCR Not Detected (NotDetected); Parainfluenza 2, PCR Not Detected (NotDetected); Parainfluenza 3, PCR Not Detected (NotDetected); Parainfluenza 4, PCR Not Detected (NotDetected); Respiratory Syncytial Virus Not Detected (NotDetected); Rhinovirus/Enterovirus Not Detected (NotDetected)
--- NOTE | 2019-08-07 18:47 | PC.NURSE ---
warehouse loader notified pt COVID test is negative, states pt is assigned to room 204 registration called at this time with admission information-spoke with Fariba
--- NOTE | 2019-08-07 18:53 | PC.NURSE ---
report given to Johanny Mazariegos RN on second floor at this time.
[2019-08-07 19:28] LABS: Troponin I < 0.01 ng/ml (0.00-0.034)
--- NOTE | 2019-08-07 19:47 | PC.NURSE ---
pt arrived from ER via wheel chair
[2019-08-07 22:33] LABS: Troponin I < 0.01 ng/ml (0.00-0.034)
[2019-08-08] VITALS (19 sets, daily range): BP systolic 145–156; BP diastolic 63–80; PULSE 78–110; RESP 16–20; TEMP 36.5–37.1; O2SAT 88–97; BMI 26.6
[2019-08-08 05:50] LABS: Eosinophils % 0.1 % (0.1-12.0); Hematocrit 36.2 % (42.0-52.0); Lymphocytes # 0.9 K/mm3 (0.7-4.5); Lymphocytes % 8.4 % (10-50); Mean Corpuscular HGB Conc 33.4 g/dL (31.8-35.4); Mean Corpuscular Hemoglobin 31.9 pg (27.0-31.2); Mean Corpuscular Volume 95.6 fl (80-94); Mean Platelet Volume 8.4 fl (7.4-10.4); Monocytes # 0.3 K/mm3 (0.1-1.0); Monocytes % 2.4 % (1.7-9.3); Neutrophils # 9.3 K/mm3 (1.8-7.8); Neutrophils % 89.1 % (37.0-80.0); Platelet Count 192 K/mm3 (142-424); Red Blood Count 3.79 M/mm3 (4.60-6.20); White Blood Count 10.5 K/mm3 (4.8-10.8)
[2019-08-08 05:52] LABS: Hemoglobin 12.1 g/dL (14.1-18.0)
[2019-08-08 05:54] LABS: MANUAL DIFFERENTIAL MANUAL DIFFERENTIAL (MANUAL DIFF)
[2019-08-08 05:55] LABS: Chloride 96 mmol/L (98-107); Sodium 136 mmol/L (136-145)
[2019-08-08 05:56] LABS: Potassium 4.3 mmoL/L (3.5-5.1)
[2019-08-08 05:58] LABS: Alanine Aminotransferase 34 U/L (12-78); Alkaline Phosphatase 89 U/L (38-126); Anion Gap 7.3 mEq/L (5-15); Aspartate Amino Transferase 29 U/L (17-59); Bilirubin,Total 0.3 mg/dl (0.2-1.3); Blood Urea Nitrogen 36 mg/dl (9-20); Carbon Dioxide 37 mmol/L (22.0-30.0); Creatinine Clearance Estimated 80 mL/min (50-200); Estimated Glomerular Filt Rate 83 ml/min (>60); GFR (African American) 100 ML/MIN (>60)
[2019-08-08 05:59] LABS: Albumin Level 3.4 g/dl (3.5-5.0); Albumin/Globulin Ratio 1.2 (1.1-1.8); Globulin 2.8 g/dL (1.3-3.2); Total Protein,Serum 6.2 g/dl (6.3-8.2)
[2019-08-08 06:06] LABS: Lymphocytes % 9 % (10-50); Neutrophils % 83 % (42-76); Total Cells Counted 100
[2019-08-08 06:07] LABS: Platelet Estimate Normal; RBC Morphology Normal
[2019-08-08 06:15] LABS: Calcium 8.2 mg/dl (8.4-10.2); Glucose 152 mg/dl (74-100)
--- NOTE | 2019-08-08 06:17 | PC.NURSE ---
A&OX4. PT TOLERATING 2L NC T/O SHIFT. PT HAS C/O FEELING SOA AFTER AMBULATING TO THE BATHROOM. PT HAS INTERMITTENT NON-PRODUCTIVE COUGH. LUNG SOUNDS DIMINISHED. NO OTHER COMPLAINTS THUS FAR. PT HAS HAD A LARGE APPETITE THIS SHIFT. TOLERATING SNACKS AND FLUIDS WELL. PT UP INDEPENDENTLY IN ROOM. VSS WILL CONTINUE TO MONITOR.
--- NOTE | 2019-08-08 07:19 | HMH.PHAVTE ---
[facility] Pharmacy VTE Monitoring - Patient Demographics Admission date: 08/07/19 Report Date: 08/08/19 Time: 07:19 Allergies/Adverse Reactions: Patient Allergies No Known Drug Allergies [NKDA] Allergy (Unknown, Verified 11/05/18 14:21) gluten Allergy (Verified 01/14/19 22:55) Height: 1.8 m Weight: 86.183 kg Patient Problems: Current Active Problems Atypical chest pain (Acute) COPD with exacerbation (Acute) - VTE Risk Labs: VTE Related Lab Results Hgb 12.1 g/dL (14.1-18.0) L D 08/08/19 05:34 Hct 36.2 % (42.0-52.0) L 08/08/19 05:34 Plt Count 192 K/mm3 (142-424) 08/08/19 05:34 BUN 36 mg/dl (9-20) H 08/08/19 05:34 Creatinine 0.90 mg/dl (0.66-1.25) 08/08/19 05:34 Estimated Creat Clear 80 mL/min (50-200) 08/08/19 05:34 Was VTE Risk Assessment Performed: Yes VTE Risk Level: Moderate Risk Clinical Trial Participant: No - Prophylaxis VTE Prophylaxis Ordered?: Yes Types of VTE Prophylaxis: TEDS Knee High
--- NOTE | 2019-08-08 07:34 | HMH.HP ---
*Admission Date: 08/07/19 *Chief complaint: Dyspnea/COPD exacerbation *History of present illness: 74-year-old gentleman presents the ED with acute shortness of breath. Here in the ED when he walked and his O2 sats were 84% on room air with O2 support and a breathing treatment and some IV Solu-Medrol his O2 sats did increase to 94% on 2 L. Patient was here the other day for COPD exacerbation and the previous provider wanted to admit the patient however patient wanted to go home. Patient denies any any overt coughing but does state that he does have a dry cough along with his COPD but nothing out of the ordinary today. Patient also states he feels he feels general malaise. And just not feeling very well. Patient denies any fevers either subjective or objective. Patient denies any loss of taste or smell. Patient denies any nausea vomiting or diarrhea. Patient denies any sore throat or headache. Above note per emergency department physician. Of note patient has been in the ER twice over the past week, has failed outpatient therapy. Patient is a long history of COPD with chronic bronchitis and panlobular emphysema which has been worsening over the past couple of years. 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 [facility] History I have reviewed the patient's past medical history: Yes Medical History: Reports:: Anxiety, Chronic Obstructive Pulmonary Disease (COPD), Home Oxygen, Hypertension, Lung Disease, Peripheral Artery Disease, Peripheral Vascular Disease Denies:: Cancer, Diabetes Mellitus Type 1, Diabetes Mellitus Type 2, Internal Pacemaker, MRSA, Seizures *Have you ever received a pneumonia vaccine?: No *Have you received a flu vaccine this season?: No Other Medical History: Reports: Arthritis, Other. Denies: Blood Transfusion Reaction Laterality Cases: Left: Arthroscopy Knee Other Surgeries: Yes: Colonoscopy, Other. No: Pacemaker Amputation: No Fractures: Yes - *Social History Educational Level: Attended College Smoking Status: Former smoker Alcohol Intake: never *Occupational Status:: retired Housing: house Household Members: spouse *Travel in the last 8 weeks: None - Psychiatric History Pschychiatric History:: Reports:: Anxiety Family Hx:: No significant family history Review of Systems - Review of Systems Review of systems:: pertinent systems reviewed and negative unless documented below Significant dyspnea over the past several months. Significant functional decline issues. No GI or cardiac symptoms. No swelling. - *Neurologic Reports abnormal hearing Meds Home Medications Medication Instructions Recorded Confirmed Type Escitalopram Oxalate 10 mg PO DAILY 08/17/17 08/07/19 History Buspirone HCl [Buspirone 15 mg 15 mg PO BID 03/17/18 08/07/19 History Tablets] Mirtazapine 45 mg PO HS 03/17/18 08/07/19 History Ipratropium/Albuterol Sulfate 3 ml IH Q6HP PRN ampul.neb 03/19/18 08/07/19 Rx [Duoneb 3mL neb] Sennosides [Senokot 8.6mg tablet] 8.6 mg PO BIDP PRN tab 03/19/18 08/07/19 Rx Albuterol Sulfate [Albuterol HFA 2 puffs IH Q6HP PRN 01/14/19 08/07/19 History Inhaler] Ipratropium/Albuterol Sulfate 1 puffs INHALATION QIDP PRN 01/14/19 08/08/19 History [Combivent Respimat Inh] Oxycodone HCl/Acetaminophen 1 tab PO Q6HP 01/14/19 08/08/19 History [Oxycodone W/Apap 325mg Tablet] diazePAM [Valium 10mg tablet] 10 mg PO HS 01/14/19 08/07/19 History Alendronate Sodium [Alendronate 35 mg PO WEEKLY 08/07/19 08/07/19 History 35mg Tablet] Cefdinir [Omnicef 300mg Capsule] 300 mg PO BID 08/07/19 08/07/19 History Ergocalciferol (Vitamin D2) 50,000 unit PO WEEKLY 08/07/19 08/07/19 History [Vitamin D2] Meloxicam
--- NOTE | 2019-08-08 08:51 | SW/DCPLANNER ---
Addendum entered by Yumiko Diaz 08/10/19 07:56: PATIENT IS DISCHARGING HOME TODAY... I HAVE NOTIFIED HOSPICE TO LET THEM KNOW..... Original Note: RECEIVED REFERRAL FOR A HOSPICE CONSULT ON THIS PATIENT: MR BATEMAN PRESENTED INTO THE HOSPITAL WITH ATYPICAL CHEST PAIN AND COPD EXACERBATION.. PATIENT RESIDES AT HOME WITH HIS AND HAS BEEN IN [facility] FOR SOMETIME WITH COPD... I HAVE SENT REFERRAL TO [facility] TO COME TO THE HOSPITAL TO SEE THE PATIENT TO SEE IF HE IS HOSPICE APPROPRIATE... DISPOSITION UNCERTAIN BUT COULD BE SOON...
--- NOTE | 2019-08-08 16:44 | PC.NURSE ---
Pt has been pleasant and cooperative this shift. A&O X4. No complaints of SOA. Pt has complained of pain X 2 this shift and has been medicated per APR. Lung sounds reveal expiratory rhonchi and scattered wheezing throughout. Telemetry shows NSR with occasional episodes of ST. Pt is wearing O2 via NC @ 2 LPM with sats. >90%. Room air sat. is 88%. Skin is c/d/i. No edema noted. Refuses SARA hose. Pt ambulates to and from the bathroom independently and occasionally uses the urinal to void. No BM this shift. 18 G peripheral IV in the LT AC was noted to be infiltrated this AM and a new 20 G peripheral IV was inserted in the RT upper arm. Home medications were sent to Pharmacy for packaging and then placed in the locked drawer at bedside. B/P has been slightly elevated this shift, otherwise VSS. Call light within reach. Will continue to monitor.
--- NOTE | 2019-08-08 19:12 | PC.NURSE ---
report given to ameena
[2019-08-09] VITALS (16 sets, daily range): BP systolic 139–184; BP diastolic 52–83; PULSE 70–102; RESP 14–18; TEMP 36.6–36.8; O2SAT 89–99; BMI 26.6
--- NOTE | 2019-08-09 02:42 | PC.NURSE ---
A&OX4. PT HAS TOLERATED 2L NC WELL THROUGHOUT SHIFT. RESPIRATIONS REGULAR AND UNLABORED. NONPRODUCTIVE, DRY, INTERMITTENT COUGH NOTED. WHEEZES NOTED THROUGHOUT. HEART RATE REGULAR W NSR ON TELE. HAND WHEEL MOLDER EQUAL. PUPILS BRISK AND REACTIVE TO LIGHT. ABDOMEN SOFT AND NONTENDER. ACTIVE BOWEL SOUNDS HEARD IN ALL 4 QUADRANTS. CLEAR BRIGHT YELLOW URINE NOTED IN THE URINAL. NO EDEMA NOTED. +2 PULSES NOTED THROUGHOUT. PT IS INDEPENDENT W ADLS AND TOLERATES WELL. PT REPORTED PAIN AT BEGINNING OF SHIFT RATING 7/10 IN BACK. PERCOCET 10MG ADMINISTERED PER MAR AND ON REASSESSMENT, PT WAS RESTING W EYES CLOSED. BED IN LOWEST POSITION. CALL LIGHT WITHIN REACH. PT RESTING COMFORTABLY IN BED. VSS. NO CONCERNS AT THIS TIME. WILL CONTINUE TO MONITOR.
--- NOTE | 2019-08-09 08:48 | HMH.ACPN2 ---
Internal Medicine - PN: Subj *Date: 08/09/19 *Time: 08:48 Interval history: Patient appears comfortable this morning. Increased oxygen requirement however. States he is not quite comfortable going home yet. Hospice saw him yesterday and they are willing to pick him up. Denies nausea, chest pain, diarrhea, vomiting. Shortness of breath mildly worse. No confusion on exam this morning Exam Vital signs and Labs for Last 24 Hours: Temp Pulse Resp BP Pulse Ox 97.8 F 80 17 140/83 91 L 08/09/19 07:25 08/09/19 07:25 08/09/19 04:00 08/09/19 07:25 08/09/19 07:25 I & O for Last 24 hours: Intake & Output 08/06/19 08/07/19 08/08/19 08/09/19 23:59 23:59 23:59 23:59 Intake Total 1080 / 1080 1870 / 1870 360 / 360 Output Total 500 / 500 Balance 1080 / 1080 1870 / 1870 -140 / -140 Weight 82.781 kg 86.183 kg 86.239 kg Narrative: - Constitutional Minimal distress; Cushingoid facial features - *Routine HEENT Exam Head: Present: cushingoid faces Eye: Present: EOMI, PERRL ENT: Present: mucous membranes moist - *Routine Neck Exam Present: supple. Absent: lymphadenopathy - *Routine Respiratory Exam Present: decreased breath sounds, prolonged expiratory phase, rhonchi, wheezes, crackles - *Routine Cardiovascular Exam Present: RRR - *Routine Abdominal Exam Present: soft, normoactive bowel sounds. Absent: tenderness - *Routine Extremities Exam Absent: cyanosis, clubbing, edema - *Routine Skin Exam Present: cyanosis, warm. Absent: rash - *Routine Neurological Exam Present: alert, oriented X3 Assessment and Plan (1) COPD with exacerbation Current visit: Yes Status: Acute Category: Medical Code(s): J44.1 - Chronic obstructive pulmonary disease with (acute) exacerbation Gold stage IV COPD. Hospice consulted. Plan to discharge patient tomorrow after completing 1 more day of IV antibiotics with plan for home hospice. (2) CAP (community acquired pneumonia) Current visit: No Status: Acute Category: Medical Code(s): J18.9 - Pneumonia, unspecified organism (3) Chronic, continuous use of opioids Current visit: No Status: Acute Category: Medical Code(s): F11.90 - Opioid use, unspecified, uncomplicated - Assessment and plan all Dx Assessment and Plan for all problems:: 74-year-old male with end-stage COPD. Continues to necessitate IV antibiotics for 1 more day. Will discharge tomorrow on hospice when is home during the day as her work schedule complicates discharge earlier than this. Patient has slight increased oxygen requirement. Reassured him that hospice will manage oxygen in the outpatient setting on an as needed titration basis. Continues to require inpatient management. Plan for discharge in the morning.
[2019-08-10 02:23] VITALS: PULSE 81
[2019-08-10 04:00] VITALS: BP 163/83; PULSE 88; RESP 16; TEMP 36.4; O2SAT 93
--- NOTE | 2019-08-10 04:31 | PC.NURSE ---
A&OX4. Pt on 2L per NC has tolerated throughout shift. pt is diminished throughout. Pt recieved PRN pain med @ 2100 for back pain 08/25,on reassessment pt resting with eyes closed.Pt has a 20G LAC SL. Pt is suppose to be discharge home this AM with hospice
[2019-08-10 05:00] VITALS: BMI 27.0
[2019-08-10 05:51] VITALS: PULSE 85; PULSE 86; O2SAT 98
--- NOTE | 2019-08-10 07:37 | [facility].DCSUM ---
General - General Admission date:: 08/07/19 Discharge date: 08/10/19 HPI HPI: 74-year-old gentleman presents the ED with acute shortness of breath. Here in the ED when he walked and his O2 sats were 84% on room air with O2 support and a breathing treatment and some IV Solu-Medrol his O2 sats did increase to 94% on 2 L. Patient was here the other day for COPD exacerbation and the previous provider wanted to admit the patient however patient wanted to go home. Patient denies any any overt coughing but does state that he does have a dry cough along with his COPD but nothing out of the ordinary today. Patient also states he feels he feels general malaise. And just not feeling very well. Patient denies any fevers either subjective or objective. Patient denies any loss of taste or smell. Patient denies any nausea vomiting or diarrhea. Patient denies any sore throat or headache. Above note per emergency department physician. Of note patient has been in the ER twice over the past week, has failed outpatient therapy. Patient is a long history of COPD with chronic bronchitis and panlobular emphysema which has been worsening over the past couple of years. 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 Came to the emergency department and was admitted for respiratory failure, chronic hypoxia. Please see my H&P. Patient was admitted, placed on broad-spectrum antibiotics and improved, steroids were given. Oxygen requirement was noted to be increased. I discussed with patient his ongoing worsening and recommended that he would consider hospice for palliative care. He is agreeable with this. Over the next couple days he improved. This morning he is at what seems to be a new baseline, requiring 4 L of nasal cannula oxygen. Exam is unchanged. Patient be discharged on cefdinir, azithromycin, steroids and twice daily diazepam because of nerve issues and agitation. He will be followed up with hospice at home and in his negative spotter office and with me as needed. Objective Vital signs: Temp Pulse Resp BP Pulse Ox 97.5 F L 86 16 163/83 H 98 08/10/19 04:00 08/10/19 05:51 08/10/19 04:00 08/10/19 04:00 08/10/19 05:51 Narrative: Alert, pleasant. Nervous. Cushingoid features. Oropharynx clear. Heart rate regular. Abdomen soft. Trace ankle edema. No clubbing, no cyanosis. Lungs with thick rhonchi bilaterally, slightly better air entry than admission, no crackles. No rash noted. Results Labs on day of discharge: Preliminary micro results at discharge 08/07/19 16:07 Blood Culture - Preliminary Blood NO GROWTH AFTER 48 HOURS 08/07/19 16:07 Blood Culture - Preliminary Blood NO GROWTH AFTER 48 HOURS DS: Diagnosis - Discharge Diagnosis (1) COPD with exacerbation Status: Chronic (2) CAP (community acquired pneumonia) Status: Acute (3) Chronic, continuous use of opioids Status: Acute (4) Chronic respiratory failure Status: Chronic Discharge Plan - Patient Discharge Instructions ACTIVITY: Continue current activity DIET: continue same diet Patient Instructions: DI for Chronic Obstructive Pulmonary Disease, DI for Atypical Chest Pain, DI for Chest Pain - Follow up Plan Disposition: Hospice - Home Home Medications: Home Medications Medication Instructions Recorded Confirmed Type Escitalopram Oxalate 10 mg PO HS 08/17/17 08/08/19 Hist
[2019-08-10 08:00] VITALS: BP 159/84; PULSE 106; RESP 20; TEMP 36.7; O2SAT 92
--- NOTE | 2019-08-10 09:27 | PC.NURSE ---
THIS RN D/C IV FROM PATIENT'S LEFT AC. THE TAPE THAT WAS SUPPORTING THE TUBING WAS TIGHT AGAINST PATIENT'S SKIN. PATIENT STATED, I WILL TAKE OFF THE TAPE PART. THIS RN STATED YOUR SKIN IS FRAGILE, I CAN GET ALCOHOL SWABS TO HELP REMOVE, PATIENT STATED, NO I CAN DO IT AND RIPPED OFF TAPE CAUSING A SMALL SKIN TEAR. PATIENT STATED OH I DID RIP OFF MY SKIN AND NOW I AM BLEEDING. THIS RN APPLIED GAUZE AND WRAPPED IT WITH COBAN. PATIENT STATED, OH THIS WILL BE THE EASIEST LAWSUIT. THIS RN REMINDED HIM THAT HE IS THE ONE THAT REMOVED THE TAPE. THIS RN INQUIRED HOW PATIENT WAS GETTING HOME. PATIENT STATED I HAVE MY OWN VEHICLE HERE. THIS RN INQUIRED IS PATIENT WAS OKAY TO DRIVE SELF HOME. PATIENT STATED I WAS WORSE WHEN I CAME IN AND I DROVE MYSELF THEN, I WILL BE FINE. HE STATED, I ONLY LIVE ABOUT 1.5 MIL[address] AW[address]. THIS RN ALONG WITH EMILY ISLAS COUNTED PATIENT'S HOME MEDICATIONS. PATIENT'S PERCOCET DID NOT MATCH PREVIOUS COUNT. AT ADMISSION PILL COUNT WAS 28, AT D/C PILL COUNT WAS 27. PATIENT STATED THAT IS CORRECT. I TOOK ONE WHEN I FILLED IT AND THEN 2 MORE. PATIENT SIGNED PAPER STATING 27 AT D/C WAS CORRECT. THIS RN TOOK PATIENT VIA WHEELCHAIR TO PATIENT'S OWN VEHICLE AND HELPED PATIENT PUT ALL SUPPLIES INTO VEHICLE. PATIENT DROVE SELF HOME. NO OTHER NEEDS OR CONCERNS AT THIS TIME.
== END 2019-08-10 08:49 | disposition hospice, home (50) ==
LOC: ER 16:52 → 2ND 19:55
PROVIDERS: Admitting Provider Emergency Medicine; Emergency Provider Family Medicine; PCP Internal Medicine Adolescent Medicine; Visit Provider Internal Medicine Adolescent Medicine
DX: J44.1 Chronic obstructive pulmonary disease with (acute) exacerbation (principal); J18.9 Pneumonia, unspecified organism; J44.0 Chronic obstructive pulmonary disease with (acute) lower respiratory infection; J96.00 Acute respiratory failure, unspecified whether with hypoxia or hypercapnia; Z99.81 Dependence on supplemental oxygen; Z87.891 Personal history of nicotine dependence; Z79.891 Long term (current) use of opiate analgesic; Z79.899 Other long term (current) drug therapy; I70.203 Unspecified atherosclerosis of native arteries of extremities, bilateral legs
CPT/HCPCS: 36415; 71045; 80048; 80053; 83605; 84484; 85007; 85025; 87040; 87581; 87633; 87798; 93005; 94640; 94760; 94761; 96365; 96375; 99284; G0378; J0456